=== PATIENT | female | born 2000 | race Caucasian/White ===

== ENCOUNTER 2018-08-12 13:22 | Inpatient (IN) | payer MEDICAID, OTHER ==
[2018-08-12] VITALS (39 sets, daily range): BP systolic 114–136; BP diastolic 60–88
[~2018-08-12] VITALS: Ht 154.9 cm; Wt 70.3 kg
--- NOTE | 2018-08-12 13:25 | NUR ---
LAYLA RIOS presented to unit via from ED, accompanied by family, with c/o CONTRACTIONS. LAYLA RIOS weighed, gowned, voided, and to bed. EFHM and TOCO applied, VS taken. LAYLA RIOS oriented to bed controls, call light, TV, heat, and A/C controls.
[2018-08-12 14:44] LABS: BILIRUBIN,URINE NEGATIVE (NEGATIVE); CLARITY,URINE CLEAR; COLOR,URINE YELLOW; GLUCOSE, URINE (UA) NEGATIVE (NEGATIVE); KETONES,URINE NEGATIVE (NEGATIVE); LEUKOCYTE ESTERASE ,URINE 2+ (NEGATIVE); NITRITE,URINE NEGATIVE (NEGATIVE); PH,URINE 6 (5-9); PROTEIN,URINE NEGATIVE (NEGATIVE); UROBILINOGEN,URINE NORMAL (NORMAL)
--- NOTE | 2018-08-12 14:45 | NUR ---
SVE by this RN. 3cm 60-70% scant amount of bloody show noted with exam. repositioned to semifowler.
[2018-08-12 14:55] LABS: BACTERIA,URINE NEGATIVE /HPF; SQUAMOUS EPITHELIAL CELL,UR 0-2 /HPF; WBC,URINE 0-2 /HPF
--- NOTE | 2018-08-12 15:05 | NUR ---
dr muir notified of patient c/o and SBAR report given by this RN. new orders received.
[2018-08-12] MEDS ORDERED: OXYTOCIN/NORMAL SALINE 500 ML IV SCH (15:10)
[2018-08-12] MEDS ORDERED: D5 LR IV SOLUTION 1,000 ML IV SCH (15:10)
[2018-08-12] MEDS ORDERED: MINERAL OIL CONCENTRATE 99.9% 15 ML UDC TOP PRN (15:15)
[2018-08-12] MEDS ORDERED: D5 LR IV SOLUTION 1,000 ML IV ONE (15:22)
[2018-08-12] MEDS ORDERED: OXYTOCIN/NORMAL SALINE 500 ML IV ONE (15:22)
--- OUTSIDE RECORDS SUMMARY | 2018-08-12 15:26 | XMS REPORT | Continuity of Care Document ---
Author Author Pending Sale To [facility] Address Unknown Phone Unavailable Allergies There is no data. Medications There is no data. Problems Date Dx Coded Attending Type Code Diagnosis Diagnosed By 11/26/2013 V70.3 SPORTS PHYSICAL 04/25/2016 SETH HANNON Z01.419 Encounter for gynecological examination (general) (routine) without abnormal findings 08/03/2016 ULICES JACKSON R21 Rash and other nonspecific skin eruption Procedures Code [place] [address] VISUAL ACUITY SCREEN 11/28/2013 GUCUL CULTURE GENITAL 04/25/2016 HIVAAB HIV 1 AND 2 ABS AND HIV 1 P24 AG 04/25/2016 PAPCHL CHLAMYDIA TRACHOMATIS BY AMPLIFIED PROBE 04/25/2016 PAPGC NEISSERIA GONORRHOEAE BY AMPLIFIED PROBE 04/25/2016 PAPLIQ PAP LIQUID PAP SCREENING 04/25/2016 PREGS TEST, QUAL, SERUM 04/25/2016 RPR RPR 04/25/2016 WTPREP WET MOUNT 04/25/2016 <section xmlns="urn:hl7-org:v3" xmlns:xsi="http:// www.w3.org/2001/XMLSchema-instance"> <templateId root= "2.16.840.1.613037.10.20.22.2.3" /> <templateId root= "2.16.840.1.413083.10.20.22.2.3.1" /> <code codeSystemName="LOINC" codeSystem= "2.16.840.1.623342.6.1" code="54663-8" displayName="Results" /> <title>Results< /title> <text> <table> <thead> <tr> <th>Test</th> <th>Result</th> <th>Range</th> </tr> </thead> < tbody> <tr> <th colspan="10">PAP LIQUID PAP SCREENING - 10:35</th> </tr> <tr> <td>PAP RESULT</td> <td >ASCUS </td> <td>NEGATIVE</td> </tr> <tr> <th colspan="10">CHLAMYDIA TRACHOMATIS BY AMPLIFIED PROBE - 04/25/16 10:35</th> </tr> <tr> <td>CHLAMYDIA TRACH AMPLIFIED PROBE</td> <td>POSITIVE </td> <td>NEGATIVE</td> </tr> <tr> <th colspan="10">NEISSERIA GONORRHOEAE BY AMPLIFIED PROBE - 04/25/16 10:35</ th> </tr> <tr> <td>NEISSERIA GONORRHOEAE BY AMPLIFIED PROBE</td> <td>NEGATIVE </td> <td>NEGATIVE</td> </tr> <tr> <th colspan="10">WET MOUNT - 04/25/16 11:26</th> </ tr> <tr> <td>Microbiology</td> <td> </td> <td /> </tr> <tr> <th colspan="10">HCG SERUM QUAL - 04/25/16 11:26</th> </tr> <tr> <td>PREG TEST, SERUM</td> <td>NEGATIVE </td> <td /> </tr> <tr> <th colspan ="10">HIV 1 AND 2 ABS AND HIV 1 P24 AG - 04/25/16 11:26</th> </tr> <tr> <td>HIV ANTIGEN - ANTIBODY</td> <td>NON-REACTIVE </td> <td /> </tr> <tr> <th colspan="10">RPR - 11:26</th> </tr> <tr> <td>RPR</td> <td>NON- REACTIVE </td> <td>NON-REACTIVE</td> </tr> <tr> <th colspan="10">CULTURE GENITAL - 04/25/16 11:26</th> </tr> <tr> <td>Microbiology</td> <td> </td> <td /> </tr > <tr> <th colspan="10">COMPREHENSIVE METABOLIC PANEL - 20:21</th> </tr> <tr> <td>POTASSIUM</td> <td> 3.8 mmol/L</td> <td>3.5-5.1</td> </tr> <tr> <td> CALCIUM</td> <td>7.9 mg/dL</td> <td>8.5-10.0</td> </tr > <tr> <td>GLUCOSE</td> <td>90 mg/dL</td> <td> 70-115</td> </tr> <tr> <td>BUN</td> <td>9 mg/dL< /td> <td>7-18</td> </tr> <tr> <td>CREATININE</td > <td>0.58 mg/dL</td> <td>0.55-1.30</td> </tr> < tr> <td>SODIUM</td> <td>138 mmol/L</td> <td>136-145</ td> </tr> <tr> <td>CHLORIDE</td> <td>101 mmol/L< /td> <td>98-107</td> </tr> <tr> <td>CO2</td> <td>27 mmol/L</td> <td>21-32</td> </tr> <tr> <td>GFR ESTIMATED NOT AFR/AM</td> <td>NOT CALCULATED </td> <td /> </tr> <tr> <td>GFR ESTIMATED IF AFR/AM</td> <td>NOT CALCULATED </td> <td /> </tr> <tr> <td>ALT-SGPT</td> <td>20 U/L</td> <td>13-56</td> </ tr> <tr> <td>AST-SGOT</td> <td>16 U/L</td> <td >15-37</td> </tr> <tr> <td>TOTAL PROTEIN,SERUM</td> <td>6.3 g/dL</td> <td>6.0-8.3</td> </tr> <tr> <td>ALBUMIN</td> <td>3.2 g/dL</td> <td>3.4-5.0</td> </tr> <tr> <td>ALKALINE PHOSPHATASE</td> <td>60 U/L</ td> <td>45-117</td> </tr> <tr> <td>TOTAL BILIRUBIN</td> <td>0.2 mg/dL</td> <td>0.2-1.0</td> </tr > <tr> <td>ANION GAP</td> <td>10 </td> <td>5- 15</td> </tr> <tr> <td>GLOBULIN, CALCULATED</td> <td>3.1 g/dL</td> <td /> </tr> <tr> <td>A/G RATIO</td> <td>1.0 ratio</td> <td>1-1.8</td> </tr> <tr> <th colspan="10">HCG SERUM QUAL - 08/03/16 20:21</th> < /tr> <tr> <td>PREG TEST, SERUM</td> <td>NEGATIVE </td> <td /> </tr> <tr> <th colspan="10">CBC WITH DIFF - 08/03/16 20:21</th> </tr> <tr> <td>WBC</td> <td>3.42 10*3/uL</td> <td>4.00-10.80</td> </tr> <tr> <td>RBC</td> <td>4.04 10*6/uL</td> <td>4.20-5.40</td > </tr> <tr> <td>HGB</td> <td>12.0 g/dL</td> <td>12.0-16.0</td> </tr> <tr> <td>HCT</td> <td>35.0 %</td> <td>37.0-47.0</td> </tr> <tr> <td>MCV</td> <td>87 fL</td> <td>81-99</td> </tr> <tr> <td>MCH</td> <td>30 pg</td> <td>26.0- 34.0</td> </tr> <tr> <td>MCHC</td> <td>34.3 g/dL </td> <td>31.0-37.0</td> </tr> <tr> <td> PLATELET COUNT</td> <td>238 10*3/uL</td> <td>150-400</td> </tr> <tr> <td>RDWCV</td> <td>12.0 %</td> <td>11.5-14.5</td> </tr> <tr> <td>DIFF TYPE</td> <td>MANUAL DIFFERENTIAL </td> <td /> </tr> <tr> <td>SEG NEUTROPHILS</td> <td>62 %</td> <td>36-66</ td> </tr> <tr> <td>LYMPHOCYTES</td> <td>28 % </td> <td>24-44</td> </tr> <tr> <td>EOSINOPHILS< /td> <td>4 %</td> <td>0-10</td> </tr> <tr> <td>NEUTROPHILS, ABSOLUTE</td> <td>2.12 10*3/uL</td> <td>1.55-7.13</td> </tr> <tr> <td>LYMPHOCYTES, ABSOLUTE</ td> <td>0.96 10*3/uL</td> <td>1.00-4.80</td> </tr> <tr> <td>EOSINOPHILS, ABSOLUTE</td> <td>0.14 10*3/uL</td> <td>0.00-0.65</td> </tr> <tr> <td>RBC MORPHOLOGY</td> <td>SEE NOTES </td> <td /> </tr> <tr> <td>ABSOLUTE NUCLEATED RBC</td> <td>0.00 10*3/uL</td> <td>0.00</td> </tr> <tr> <td>VARIANT LYMPHS PERCENT</td> <td>7 %</td> <td /> </tr> <tr> <td>PERCENT NUCLEATED RBC</td> <td>0.0 %</td> < td>0.0</td> </tr> <tr> <td>MONOCYTES</td> <td>6 %</td> <td>1-10</td> </tr> <tr> <td> MONOCYTES, ABSOLUTE</td> <td>0.21 10*3/uL</td> <td>0.40-1.08</ td> </tr> <tr> <td>MPV</td> <td>9.5 fL</td> <td>9.4-12.3</td> </tr> <tr> <td>RDW STANDARD DEVIATION</td> <td>38.4 fL</td> <td>36.4-46.3</td> </tr > </tbody> </table> </text> <entry> <organizer moodCode="EVN" classCode="BATTERY"> <templateId root="2.16.840.1.932573.10.20.22.4.1" /> <id nullFlavor="NA" /> <code codeSystem="local" code="PAPLIQ" displayName="PAP LIQUID PAP SCREENING" /> <statusCode code="completed" /> <component> <observation moodCode="EVN" classCode="OBS"> < templateId root="2.16.840.1.372673.10.20.22.4.2" /> <id nullFlavor="NA " /> <code codeSystem="local" code="RESULT" displayName="PAP RESULT" / > <statusCode code="completed" /> <effectiveTime value= "[id number]" /> <value unit="" xsi:type="PQ" value="ASCUS" /> <interpretationCode codeSystem="local" code="A" /> <referenceRange> <observationRange> <text>NEGATIVE</text> </ observationRange> </referenceRange> </observation> </ component> </organizer> </entry> <entry> <organizer moodCode="EVN" classCode="BATTERY"> <templateId root="216.840.1.929523.10.20.22.4.1" /> <id nullFlavor="NA" /> <code codeSystem="local" code="PAPCHL" displayName="CHLAMYDIA TRACHOMATIS BY AMPLIFIED PROBE" /> <statusCode code= "completed" /> <component> <observation moodCode="EVN" classCode= "OBS"> <templateId root="216.840.1.758672.10.20.22.4.2" /> < id nullFlavor="NA" /> <code codeSystem="local" code="PAPCHL" displayName="CHLAMYDIA TRACH AMPLIFIED PROBE" /> <statusCode code= "completed" /> <effectiveTime value="[id number]" /> <value unit="" xsi:type="PQ" value="POSITIVE" /> <interpretationCode codeSystem="local" code="A" /> <referenceRange> < observationRange> <text>NEGATIVE</text> </ observationRange> </referenceRange> </observation> </ component> </organizer> </entry> <entry> <organizer moodCode="EVN" classCode="BATTERY"> <templateId root="09.07.840.1.777642.10..22.4.1" /> <id nullFlavor="NA" /> <code codeSystem="local" code="PAPGC" displayName="NEISSERIA GONORRHOEAE BY AMPLIFIED PROBE" /> <statusCode code= "completed" /> <component> <observation moodCode="EVN" classCode= "OBS"> <templateId root="09.07.840.1.331800.05.11.22.4.2" /> < id nullFlavor="NA" /> <code codeSystem="local" code="PAPGC" displayName ="NEISSERIA GONORRHOEAE BY AMPLIFIED PROBE" /> <statusCode code= "completed" /> <effectiveTime value="018084717203" /> <value unit="" xsi:type="PQ" value="NEGATIVE" /> <referenceRange> < observationRange> <text>NEGATIVE</text> </ observationRange> </referenceRange> </observation> </ component> </organizer> </entry> <entry> <organizer moodCode="EVN" classCode="BATTERY"> <templateId root="09.07.840.1.781382.05.11.22.4.1" /> <id nullFlavor="NA" /> <code codeSystem="local" code="WTPREP" displayName="WET MOUNT" /> <statusCode code="completed" /> <component > <observation moodCode="EVN" classCode="OBS"> <templateId root= "16.840.1.262274.10...4.2" /> <id nullFlavor="NA" /> < code codeSystem="local" code="MB" displayName="Microbiology" /> < statusCode code="completed" /> <effectiveTime value="[id number]" /> <value xsi:type="ST" value="<pre><b>WET MOUNT</b> SOURCE: CERVIX REQUISITION NOTE: NONE TEST RESULT: NO TRICHOMONAS ATEST RESULT: NO YEAST REPORT STATUS: 04/25/2016 FINAL </pre>" /> <referenceRange> <observationRange> <text /> </observationRange> </referenceRange> </observation> </component> </organizer> </ entry> <entry> <organizer moodCode="EVN" classCode="BATTERY"> < templateId root="216.840.1.528302.10..22.4.1" /> <id nullFlavor="NA" /> <code codeSystem="local" code="PREGS" displayName="HCG SERUM QUAL" /> <statusCode code="completed" /> <component> <observation moodCode= "EVN" classCode="OBS"> <templateId root="2.16.840.1.873074.10...4.2 " /> <id nullFlavor="NA" /> <code codeSystem="local" code= "PREGS" displayName="PREG TEST, SERUM" /> <statusCode code="completed" /> <effectiveTime value="565611985674" /> <value unit="" xsi: type="PQ" value="NEGATIVE" /> <referenceRange> < observationRange> <text /> </observationRange> </referenceRange> </observation> </component> </organizer> </ entry> <entry> <organizer moodCode="EVN" classCode="BATTERY"> < templateId root="2.16.840.1.152663.10..22.4.1" /> <id nullFlavor="NA" /> <code codeSystem="local" code="HIVAAB" displayName="HIV 1 AND 2 ABS AND HIV 1 P24 AG" /> <statusCode code="completed" /> <component> < observation moodCode="EVN" classCode="OBS"> <templateId root= "216.840.1.835050.22.4.2" /> <id nullFlavor="NA" /> < code codeSystem="local" code="HIVAGB" displayName="HIV ANTIGEN - ANTIBODY" /> <statusCode code="completed" /> <effectiveTime value= "668378956894" /> <value unit="" xsi:type="PQ" value="NON-REACTIVE" /> <referenceRange> <observationRange> <text /> </observationRange> </referenceRange> </observation> </component> </organizer> </entry> <entry> <organizer moodCode= "EVN" classCode="BATTERY"> <templateId root="16.840.1.180579.05.11.22.4.1 " /> <id nullFlavor="NA" /> <code codeSystem="local" code="RPR" displayName="RPR" /> <statusCode code="completed" /> <component> <observation moodCode="EVN" classCode="OBS"> <templateId root= "16.840.1.813597...4.2" /> <id nullFlavor="NA" /> < code codeSystem="local" code="RPR" displayName="RPR" /> <statusCode code="completed" /> <effectiveTime value="592623993738" /> < value unit="" xsi:type="PQ" value="NON-REACTIVE" /> <referenceRange> <observationRange> <text>NON-REACTIVE</text> < /observationRange> </referenceRange> </observation> </ component> </organizer> </entry> <entry> <organizer moodCode="EVN" classCode="BATTERY"> <templateId root="16.840.1.027866.10..4.1" /> <id nullFlavor="NA" /> <code codeSystem="local" code="GUCUL" displayName="CULTURE GENITAL" /> <statusCode code="completed" /> < component> <observation moodCode="EVN" classCode="OBS"> < templateId root="09.07.840.1.153909.10.4.2" /> <id nullFlavor="NA " /> <code codeSystem="local" code="MB" displayName="Microbiology" /> <statusCode code="completed" /> <effectiveTime value= "128899848703" /> <value xsi:type="ST" value="<pre><b>CULTURE GENITAL</ b> SOURCE: CERVIX REQUISITION NOTE: NONE CULTURE RESULTS: MODERATE GARDNERELLA VAGINALIS ACULTURE RESULTS: AND NORMAL GENITAL TRACT SONNY REPORT STATUS: 2015 FINAL </pre>" /> <referenceRange> <observationRange> <text /> </observationRange> </referenceRange> </observation> </component> </organizer> </entry> <entry> < organizer moodCode="EVN" classCode="BATTERY"> <templateId root= "09.07.840.1.613799.05.11.22.4.1" /> <id nullFlavor="NA" /> <code codeSystem="local" code="CMEP" displayName="COMPREHENSIVE METABOLIC PANEL" /> <statusCode code="completed" /> <component> <observation moodCode="EVN" classCode="OBS"> <templateId root= "16.840.1.856805.10..22.4.2" /> <id nullFlavor="NA" /> < code codeSystem="local" code="K" displayName="POTASSIUM" /> < statusCode code="completed" /> <effectiveTime value="848136524792" /> <value unit="mmol/L" xsi:type="PQ" value="3.8" /> < referenceRange> <observationRange> <text>3.5-5.1</text> </observationRange> </referenceRange> </observation > </component> <component> <observation moodCode="EVN" classCode="OBS"> <templateId root="216.840.1.648454.1022.4.2" /> <id nullFlavor="NA" /> <code codeSystem="local" code="CA" displayName="CALCIUM" /> <statusCode code="completed" /> < effectiveTime value="" /> <value unit="mg/dL" xsi:type="PQ " value="7.9" /> <interpretationCode codeSystem="local" code="L" /> <referenceRange> <observationRange> <text>8.5- 10.0</text> </observationRange> </referenceRange> </ observation> </component> <component> <observation moodCode= "EVN" classCode="OBS"> <templateId root="09.07.840.1.123582.05.11.22.4.2 " /> <id nullFlavor="NA" /> <code codeSystem="local" code= "GLUC" displayName="GLUCOSE" /> <statusCode code="completed" /> <effectiveTime value="" /> <value unit="mg/dL" xsi:type= "PQ" value="90" /> <referenceRange> <observationRange> <text>70-115</text> </observationRange> </ referenceRange> </observation> </component> <component> <observation moodCode="EVN" classCode="OBS"> <templateId root= "16.840.1.551893.10.22.4.2" /> <id nullFlavor="NA" /> < code codeSystem="local" code="BUN" displayName="BUN" /> <statusCode code="completed" /> <effectiveTime value="" /> < value unit="mg/dL" xsi:type="PQ" value="9" /> <referenceRange> <observationRange> <text>7-18</text> </ observationRange> </referenceRange> </observation> </ component> <component> <observation moodCode="EVN" classCode="OBS"> <templateId root="16.840.1.864933.10..22.4.2" /> <id nullFlavor="NA" /> <code codeSystem="local" code="CREA" displayName= "CREATININE" /> <statusCode code="completed" /> < effectiveTime value="" /> <value unit="mg/dL" xsi:type="PQ " value="0.58" /> <referenceRange> <observationRange> <text>0.55-1.30</text> </observationRange> </ referenceRange> </observation> </component> <component> <observation moodCode="EVN" classCode="OBS"> <templateId root= "09.07.840.1.020348...4.2" /> <id nullFlavor="NA" /> < code codeSystem="local" code="NA" displayName="SODIUM" /> <statusCode code="completed" /> <effectiveTime value="" /> < value unit="mmol/L" xsi:type="PQ" value="138" /> <referenceRange> <observationRange> <text>136-145</text> </ observationRange> </referenceRange> </observation> </ component> <component> <observation moodCode="EVN" classCode="OBS"> <templateId root="09.07.840.1.660594.10..22.4.2" /> <id nullFlavor="NA" /> <code codeSystem="local" code="CL" displayName= "CHLORIDE" /> <statusCode code="completed" /> <effectiveTime value="" /> <value unit="mmol/L" xsi:type="PQ" value="101" /> <referenceRange> <observationRange> <text>98 -107</text> </observationRange> </referenceRange> </ observation> </component> <component> <observation moodCode= "EVN" classCode="OBS"> <templateId root="09.07.840.1.541058.10..4.2 " /> <id nullFlavor="NA" /> <code codeSystem="local" code="CO2 " displayName="CO2" /> <statusCode code="completed" /> < effectiveTime value="" /> <value unit="mmol/L" xsi:type="PQ " value="27" /> <referenceRange> <observationRange> <text>21-32</text> </observationRange> </ referenceRange> </observation> </component> <component> <observation moodCode="EVN" classCode="OBS"> <templateId root= "09.07.840.1.668168.05.11.22.4.2" /> <id nullFlavor="NA" /> < code codeSystem="local" code="GFR" displayName="GFR ESTIMATED NOT AFR/AM" /> <statusCode code="completed" /> <effectiveTime value= "" /> <value unit="" xsi:type="PQ" value="NOT CALCULATED" / > <referenceRange> <observationRange> <text /> </observationRange> </referenceRange> </observation > </component> <component> <observation moodCode="EVN" classCode="OBS"> <templateId root="09.07.840.1.299785.10...4.2" /> <id nullFlavor="NA" /> <code codeSystem="local" code="GFRAFR" displayName="GFR ESTIMATED IF AFR/AM" /> <statusCode code="completed" / > <effectiveTime value="" /> <value unit="" xsi: type="PQ" value="NOT CALCULATED" /> <referenceRange> < observationRange> <text /> </observationRange> </referenceRange> </observation> </component> <component> <observation moodCode="EVN" classCode="OBS"> <templateId root= "216.840.1.199528.10...4.2" /> <id nullFlavor="NA" /> < code codeSystem="local" code="ALT" displayName="ALT-SGPT" /> < statusCode code="completed" /> <effectiveTime value="" /> <value unit="U/L" xsi:type="PQ" value="20" /> <referenceRange > <observationRange> <text>13-56</text> </ observationRange> </referenceRange> </observation> </ component> <component> <observation moodCode="EVN" classCode="OBS"> <templateId root="16.840.1.806433.10...4.2" /> <id nullFlavor="NA" /> <code codeSystem="local" code="AST" displayName="AST -SGOT" /> <statusCode code="completed" /> <effectiveTime value ="" /> <value unit="U/L" xsi:type="PQ" value="16" /> <referenceRange> <observationRange> <text>15-37</ text> </observationRange> </referenceRange> </ observation> </component> <component> <observation moodCode= "EVN" classCode="OBS"> <templateId root="16.840.1.878826.22.4.2 " /> <id nullFlavor="NA" /> <code codeSystem="local" code="TP " displayName="TOTAL PROTEIN,SERUM" /> <statusCode code="completed" /> <effectiveTime value="430893756082" /> <value unit="g/dL" xsi :type="PQ" value="6.3" /> <referenceRange> <observationRange > <text>6.0-8.3</text> </observationRange> </ referenceRange> </observation> </component> <component> <observation moodCode="EVN" classCode="OBS"> <templateId root= "16.840.1.769200.05.11.22.4.2" /> <id nullFlavor="NA" /> < code codeSystem="local" code="ALB" displayName="ALBUMIN" /> < statusCode code="completed" /> <effectiveTime value="288076552498" /> <value unit="g/dL" xsi:type="PQ" value="3.2" /> < interpretationCode codeSystem="local" code="L" /> <referenceRange> <observationRange> <text>3.4-5.0</text> </ observationRange> </referenceRange> </observation> </ component> <component> <observation moodCode="EVN" classCode="OBS"> <templateId root="09.07.840.1.390570.22.4.2" /> <id nullFlavor="NA" /> <code codeSystem="local" code="ALK" displayName= "ALKALINE PHOSPHATASE" /> <statusCode code="completed" /> < effectiveTime value="083149206561" /> <value unit="U/L" xsi:type="PQ" value="60" /> <referenceRange> <observationRange> <text>45-117</text> </observationRange> </referenceRange > </observation> </component> <component> <observation moodCode="EVN" classCode="OBS"> <templateId root= "216.840.1.147657.1022.4.2" /> <id nullFlavor="NA" /> < code codeSystem="local" code="TBIL" displayName="TOTAL BILIRUBIN" /> < statusCode code="completed" /> <effectiveTime value="" /> <value unit="mg/dL" xsi:type="PQ" value="0.2" /> < referenceRange> <observationRange> <text>0.2-1.0</text> </observationRange> </referenceRange> </observation > </component> <component> <observation moodCode="EVN" classCode="OBS"> <templateId root="09.07.840.1.210755.22.4.2" /> <id nullFlavor="NA" /> <code codeSystem="local" code="BAL" displayName="ANION GAP" /> <statusCode code="completed" /> < effectiveTime value="" /> <value unit="" xsi:type="PQ" value="10" /> <referenceRange> <observationRange> <text>5-15</text> </observationRange> </referenceRange> </observation> </component> <component> <observation moodCode="EVN" classCode="OBS"> <templateId root= "16.840.1.968863.1022.4.2" /> <id nullFlavor="NA" /> < code codeSystem="local" code="GLOBC" displayName="GLOBULIN, CALCULATED" /> <statusCode code="completed" /> <effectiveTime value=" " /> <value unit="g/dL" xsi:type="PQ" value="3.1" /> < referenceRange> <observationRange> <text /> < /observationRange> </referenceRange> </observation> </ component> <component> <observation moodCode="EVN" classCode="OBS"> <templateId root="16.840.1.513473.10.20.22.4.2" /> <id nullFlavor="NA" /> <code codeSystem="local" code="AGRATIO" displayName= "A/G RATIO" /> <statusCode code="completed" /> <effectiveTime value="413157928451" /> <value unit="ratio" xsi:type="PQ" value="1.0" / > <referenceRange> <observationRange> <text>1- 1.8</text> </observationRange> </referenceRange> </ observation> </component> </organizer> </entry> <entry> <organizer moodCode="EVN" classCode="BATTERY"> <templateId root= "16.840.1.884502.10..22.4.1" /> <id nullFlavor="NA" /> <code codeSystem="local" code="PREGS" displayName="HCG SERUM QUAL" /> < statusCode code="completed" /> <component> <observation moodCode= "EVN" classCode="OBS"> <templateId root="16.840.1.450657.10.20.22.4.2 " /> <id nullFlavor="NA" /> <code codeSystem="local" code= "PREGS" displayName="PREG TEST, SERUM" /> <statusCode code="completed" /> <effectiveTime value="338387451178" /> <value unit="" xsi: type="PQ" value="NEGATIVE" /> <referenceRange> < observationRange> <text /> </observationRange> </referenceRange> </observation> </component> </organizer> </ entry> <entry> <organizer moodCode="EVN" classCode="BATTERY"> < templateId root="16.840.1.404998.05.11.22.4.1" /> <id nullFlavor="NA" /> <code codeSystem="local" code="CBC" displayName="CBC WITH DIFF" /> < statusCode code="completed" /> <component> <observation moodCode= "EVN" classCode="OBS"> <templateId root="[id number] " /> <id nullFlavor="NA" /> <code codeSystem="local" code="WBC " displayName="WBC" /> <statusCode code="completed" /> < effectiveTime value="" /> <value unit="10*3/uL" xsi:type= "PQ" value="3.42" /> <interpretationCode codeSystem="local" code="L" / > <referenceRange> <observationRange> <text> 4.00-10.80</text> </observationRange> </referenceRange> </observation> </component> <component> <observation moodCode="EVN" classCode="OBS"> <templateId root= "[id number]" /> <id nullFlavor="NA" /> < code codeSystem="local" code="RBC" displayName="RBC" /> <statusCode code="completed" /> <effectiveTime value="" /> < value unit="10*6/uL" xsi:type="PQ" value="4.04" /> <interpretationCode codeSystem="local" code="L" /> <referenceRange> < observationRange> <text>4.20-5.40</text> </ observationRange> </referenceRange> </observation> </ component> <component> <observation moodCode="EVN" classCode="OBS"> <templateId root="[id number]" /> <id nullFlavor="NA" /> <code codeSystem="local" code="HGB" displayName="HGB " /> <statusCode code="completed" /> <effectiveTime value= "" /> <value unit="g/dL" xsi:type="PQ" value="12.0" /> <referenceRange> <observationRange> <text>12.0- 16.0</text> </observationRange> </referenceRange> </ observation> </component> <component> <observation moodCode= "EVN" classCode="OBS"> <templateId root="[id number] " /> <id nullFlavor="NA" /> <code codeSystem="local" code="HCT " displayName="HCT" /> <statusCode code="completed" /> < effectiveTime value="" /> <value unit="%" xsi:type="PQ " value="35.0" /> <interpretationCode codeSystem="local" code="L" /> <referenceRange> <observationRange> <text>37.0- 47.0</text> </observationRange> </referenceRange> </ observation> </component> <component> <observation moodCode= "EVN" classCode="OBS"> <templateId root="[id number] " /> <id nullFlavor="NA" /> <code codeSystem="local" code="MCV " displayName="MCV" /> <statusCode code="completed" /> < effectiveTime value="" /> <value unit="fL" xsi:type="PQ" value="87" /> <referenceRange> <observationRange> <text>81-99</text> </observationRange> </referenceRange > </observation> </component> <component> <observation moodCode="EVN" classCode="OBS"> <templateId root= "[id number]" /> <id nullFlavor="NA" /> < code codeSystem="local" code="MCH" displayName="MCH" /> <statusCode code="completed" /> <effectiveTime value="[id number]" /> < value unit="pg" xsi:type="PQ" value="30" /> <referenceRange> <observationRange> <text>26.0-34.0</text> </ observationRange> </referenceRange> </observation> </ component> <component> <observation moodCode="EVN" classCode="OBS"> <templateId root="[id number]" /> <id nullFlavor="NA" /> <code codeSystem="local" code="MCHC" displayName= "MCHC" /> <statusCode code="completed" /> <effectiveTime value ="[id number]" /> <value unit="g/dL" xsi:type="PQ" value="34.3" /> <referenceRange> <observationRange> <text>31.0- 37.0</text> </observationRange> </referenceRange> </ observation> </component> <component> <observation moodCode= "EVN" classCode="OBS"> <templateId root="[id number] " /> <id nullFlavor="NA" /> <code codeSystem="local" code="PLT " displayName="PLATELET COUNT" /> <statusCode code="completed" /> <effectiveTime value="" /> <value unit="10*3/uL" xsi: type="PQ" value="238" /> <referenceRange> <observationRange > <text>150-400</text> </observationRange> </ referenceRange> </observation> </component> <component> <observation moodCode="EVN" classCode="OBS"> <templateId root= "[id number]" /> <id nullFlavor="NA" /> < code codeSystem="local" code="RDWCV" displayName="RDWCV" /> < statusCode code="completed" /> <effectiveTime value="" /> <value unit="%" xsi:type="PQ" value="12.0" /> < referenceRange> <observationRange> <text>11.5-14.5</text > </observationRange> </referenceRange> </observation > </component> <component> <observation moodCode="EVN" classCode="OBS"> <templateId root="[id number]" /> <id nullFlavor="NA" /> <code codeSystem="local" code="DTYP" displayName="DIFF TYPE" /> <statusCode code="completed" /> < effectiveTime value="" /> <value unit="" xsi:type="PQ" value="MANUAL DIFFERENTIAL" /> <referenceRange> < observationRange> <text /> </observationRange> </referenceRange> </observation> </component> <component> <observation moodCode="EVN" classCode="OBS"> <templateId root= "[id number]" /> <id nullFlavor="NA" /> < code codeSystem="local" code="SEG" displayName="SEG NEUTROPHILS" /> < statusCode code="completed" /> <effectiveTime value="" /> <value unit="%" xsi:type="PQ" value="62" /> < referenceRange> <observationRange> <text>36-66</text> </observationRange> </referenceRange> </observation> </component> <component> <observation moodCode="EVN" classCode= "OBS"> <templateId root="[id number]..22.4.2" /> < id nullFlavor="NA" /> <code codeSystem="local" code="LYMP" displayName= "LYMPHOCYTES" /> <statusCode code="completed" /> < effectiveTime value="" /> <value unit="%" xsi:type="PQ " value="28" /> <referenceRange> <observationRange> <text>24-44</text> </observationRange> </ referenceRange> </observation> </component> <component> <observation moodCode="EVN" classCode="OBS"> <templateId root= "[id number]..22.4.2" /> <id nullFlavor="NA" /> < code codeSystem="local" code="EOS" displayName="EOSINOPHILS" /> < statusCode code="completed" /> <effectiveTime value="" /> <value unit="%" xsi:type="PQ" value="4" /> <referenceRange > <observationRange> <text>0-10</text> </ observationRange> </referenceRange> </observation> </ component> <component> <observation moodCode="EVN" classCode="OBS"> <templateId root="[id number].2" /> <id nullFlavor="NA" /> <code codeSystem="local" code="ABNEUT" displayName= "NEUTROPHILS, ABSOLUTE" /> <statusCode code="completed" /> < effectiveTime value="" /> <value unit="10*3/uL" xsi:type= "PQ" value="2.12" /> <referenceRange> <observationRange> <text>1.55-7.13</text> </observationRange> </ referenceRange> </observation> </component> <component> <observation moodCode="EVN" classCode="OBS"> <templateId root= "[id number]" /> <id nullFlavor="NA" /> < code codeSystem="local" code="ABLYMP" displayName="LYMPHOCYTES, ABSOLUTE" /> <statusCode code="completed" /> <effectiveTime value= "" /> <value unit="10*3/uL" xsi:type="PQ" value="0.96" /> <interpretationCode codeSystem="local" code="L" /> < referenceRange> <observationRange> <text>1.00-4.80</text > </observationRange> </referenceRange> </observation > </component> <component> <observation moodCode="EVN" classCode="OBS"> <templateId root="[id number].2" /> <id nullFlavor="NA" /> <code codeSystem="local" code="ABEOS" displayName="EOSINOPHILS, ABSOLUTE" /> <statusCode code="completed" /> <effectiveTime value="" /> <value unit="10*3/uL" xsi:type="PQ" value="0.14" /> <referenceRange> < observationRange> <text>0.00-0.65</text> </ observationRange> </referenceRange> </observation> </ component> <component> <observation moodCode="EVN" classCode="OBS"> <templateId root="[id number]" /> <id nullFlavor="NA" /> <code codeSystem="local" code="RMOR" displayName= "RBC MORPHOLOGY" /> <statusCode code="completed" /> < effectiveTime value="" /> <value unit="" xsi:type="PQ" value="SEE NOTES" /> <referenceRange> <observationRange> <text /> </observationRange> </referenceRange> </observation> </component> <component> <observation moodCode="EVN" classCode="OBS"> <templateId root= "[id number]2.4.2" /> <id nullFlavor="NA" /> < code codeSystem="local" code="ANRBC" displayName="ABSOLUTE NUCLEATED RBC" /> <statusCode code="completed" /> <effectiveTime value= "" /> <value unit="10*3/uL" xsi:type="PQ" value="0.00" /> <referenceRange> <observationRange> <text>0.00< /text> </observationRange> </referenceRange> </ observation> </component> <component> <observation moodCode= "EVN" classCode="OBS"> <templateId root="[id number] " /> <id nullFlavor="NA" /> <code codeSystem="local" code= "VLYMP" displayName="VARIANT LYMPHS PERCENT" /> <statusCode code= "completed" /> <effectiveTime value="" /> <value unit="%" xsi:type="PQ" value="7" /> <interpretationCode codeSystem= "local" code="H" /> <referenceRange> <observationRange> <text /> </observationRange> </referenceRange> </observation> </component> <component> <observation moodCode="EVN" classCode="OBS"> <templateId root= "09.07.840.1.482345.1022.4.2" /> <id nullFlavor="NA" /> < code codeSystem="local" code="PNRBC" displayName="PERCENT NUCLEATED RBC" /> <statusCode code="completed" /> <effectiveTime value= "" /> <value unit="%" xsi:type="PQ" value="0.0" /> <referenceRange> <observationRange> <text>0.0</ text> </observationRange> </referenceRange> </ observation> </component> <component> <observation moodCode= "EVN" classCode="OBS"> <templateId root="840.1.130876.10.4.2 " /> <id nullFlavor="NA" /> <code codeSystem="local" code="MON " displayName="MONOCYTES" /> <statusCode code="completed" /> < effectiveTime value="[id number]" /> <value unit="%" xsi:type="PQ " value="6" /> <referenceRange> <observationRange> <text>1-10</text> </observationRange> </referenceRange > </observation> </component> <component> <observation moodCode="EVN" classCode="OBS"> <templateId root= "09.07.840.1.677897.10.2022.4.2" /> <id nullFlavor="NA" /> < code codeSystem="local" code="ABMON" displayName="MONOCYTES, ABSOLUTE" /> <statusCode code="completed" /> <effectiveTime value=" " /> <value unit="10*3/uL" xsi:type="PQ" value="0.21" /> < interpretationCode codeSystem="local" code="L" /> <referenceRange> <observationRange> <text>0.40-1.08</text> </ observationRange> </referenceRange> </observation> </ component> <component> <observation moodCode="EVN" classCode="OBS"> <templateId root="[id number]..22.4.2" /> <id nullFlavor="NA" /> <code codeSystem="local" code="MPV" displayName="MPV " /> <statusCode code="completed" /> <effectiveTime value= "" /> <value unit="fL" xsi:type="PQ" value="9.5" /> <referenceRange> <observationRange> <text>9.4-12.3</ text> </observationRange> </referenceRange> </ observation> </component> <component> <observation moodCode= "EVN" classCode="OBS"> <templateId root="216.840.1.342230.10.20.22.4.2 " /> <id nullFlavor="NA" /> <code codeSystem="local" code= "RDWSD" displayName="RDW STANDARD DEVIATION" /> <statusCode code= "completed" /> <effectiveTime value="" /> <value unit="fL" xsi:type="PQ" value="38.4" /> <referenceRange> < observationRange> <text>36.4-46.3</text> </ observationRange> </referenceRange> </observation> </ component> </organizer> </entry></section> Encounters ACCT No. Visit Date/Time Discharge Status Pt. Type Provider Facility Loc./Unit Complaint [id number] 11/26/2013 11:07:00 11/26/2013 23:59:59 CLS Outpatient [id number] 09/29/2012 16:10:48 RECURRING [id number] 08/03/2016 19:06:00 08/03/2016 22:52:00 DIS Emergency ULICES JACKSON [facility] MAYA [id number] 04/25/2016 11:06:59 04/25/2016 23:59:00 DIS Outpatient SETH HANNON [id number] 08/03/2016 19:06:37 ACT Document Registration
[2018-08-12] MEDS ORDERED: FLU QUADRIvalent (5+ YOA) 2018-2019 (AFLURIA) 0.5 ML IM ONE (15:45)
[2018-08-12 15:49] LABS: BASOPHILS % (AUTO) 0 % (0-10); EOSINOPHILS # (AUTO) 0.1 10^3/uL (0.0-0.3); EOSINOPHILS % (AUTO) 1 % (0-10); HEMATOCRIT 34 % (35-52); HEMOGLOBIN 11.4 G/DL (11.5-16.0); LYMPHOCYTES # (AUTO) 2.3 X 10^3 (1.0-4.0); LYMPHOCYTES % (AUTO) 20 % (12-44); MEAN CORPUSCULAR HEMOGLOBIN 29 PG (25-34); MEAN CORPUSCULAR HGB CONC 34 G/DL (32-36); MEAN CORPUSCULAR VOLUME 85 FL (80-99); MEAN PLATELET VOLUME 10.7 FL (7.4-10.4); MONOCYTES # (AUTO) 0.8 X 10^3 (0.0-1.0); MONOCYTES % (AUTO) 7 % (0-12); NEUTROPHILS # (AUTO) 8.5 X 10^3 (1.8-7.8); NEUTROPHILS % (AUTO) 72 % (42-75); PLATELET COUNT 322 10^3/uL (130-400); RED BLOOD COUNT 3.99 10^6/uL (4.35-5.85); RED CELL DISTRIBUTION WIDTH 12.7 % (10.0-14.5); WHITE BLOOD COUNT 11.7 10^3/uL (4.3-11.0)
[2018-08-12] MEDS ORDERED: SUFENTA 0.6MCG/ML BUPIVA 0.125 100 ML ONE (16:31)
--- NOTE | 2018-08-12 16:39 | History & Physical-OB/GYN ---
History of Present Illness History of Present Illness Reason for visit/HPI Onset of labor Date of Admission Aug 12, 2018 at 15:00 Date Seen by a Provider: Aug 12, 2018 Time Seen by a Provider: 16:30 I consulted on this patient on 08/12/18 16:33 Attending Physician Gabe Deleon DO Admitting Physician No,Local Physician Consult Gabe Deleon DO Allergies and Home Medications Allergies Coded Allergies: No Known Drug Allergies (Unverified , 08/12/18) Home Medications No Active Prescriptions or Reported Meds Patient Home Medication List Home Medication List Reviewed: Yes Past Snqycge-Zvocsz-Vnyefr Hx Patient Social History Alcohol Use: Denies Use Recent Foreign Travel: No Contact w/other who traveled: No Recent Infectious Disease Expo: No Seasonal Allergies Seasonal Allergies: No Surgeries No Reproductive System Expected Date of Delivery: Aug 29, 2018 Genitourinary No Review of Systems Constitutional: no symptoms reported Respiratory: no symptoms reported Cardiovascular: no symptoms reported : Yes Expected Date of Delivery: Aug 29, 2018 LMP: Aug 12, 2018 Control/STD Prophylaxis: None Skin: no symptoms reported Physical Exam Physical Exam Vital Signs Capillary Refill : Labs General Appearance: No Apparent Distress, WD/WN Respiratory: Chest Non Tender, Lungs Clear, Normal Breath Sounds Cardiovascular: Regular Rate, Rhythm, No Murmur Abdominal: normal bowel sounds, non tender, distended () Gynecology/General: No urethral discharge, No lesions Labia: WNL Vagina: WNL Cervix: WNL, Other (Cervix 4 cm/70%/-3 Vertex/Intact) Cervix OS: open (Cervix 4 cm/70%/-3 Vertex/Intact) Uterus: Enlarged (35 cm) Assessment/Plan Assessment and Plan Assessment: IUP at 37 4/7 weeks, early labor Admission Diagnosis IUP at 37 4/7 weeks, early labor. Care in [place], [place] Admission Status: Inpatient Order (span 2 midnights) Reason for Inpatient Admission: Onset of labor Diagnosis/Problems Diagnosis/Problems (1) Uterine contractions (2) Active labor Clinical Quality Measures DVT/VTE Risk/Contraindication: Risk Factor Score Per Nursin RFS Level Per Nursing on Admit: 2=Moderate GABE DELEON DO Aug 12, 2018 16:39
[2018-08-12] MEDS ORDERED: LIDOCAINE PF 2% 5 ML (XYLOCAINE) VIAL ONE (17:00)
[2018-08-12] MEDS ORDERED: BUPIVACAINE 0.25% 30 ML (SENSORCAINE) VIAL ONE (17:00)
[2018-08-12] MEDS ORDERED: fentaNYL INJECTION 100 MCG/2 ML AMP ONE (17:01)
[2018-08-12] MEDS ORDERED: LACTATED RINGERS 1,000 ML IV ONE ×2 (17:36)
[2018-08-12] MEDS ORDERED: EPIDURAL (SUFENTA 0.6MCG/ML BUPIVA 0.125%) 100 ML BAG EPI PRN (17:45)
[2018-08-12] MEDS ORDERED: NALOXONE 0.4 MG/ML 1 ML (NARCAN) VIAL IV PRN (17:45)
[2018-08-12] MEDS ORDERED: ONDANSETRON 4 MG/2 ML (SDV) Z0FRAN IV PRN (17:45)
--- NOTE | 2018-08-12 20:55 | NUR ---
Pt. complaining of contractions, but no pressure at this time. Pt is laying calmly in bed. Epidural bolus given at this time.
[2018-08-12] MEDS ORDERED: LIDOCAINE 1% INJ 20 ML 20 ML VIAL ONE (21:52)
[2018-08-12] MEDS ORDERED: CATHETER FLUSH 10 ML SYR IV SCH (22:00)
--- NOTE | 2018-08-12 22:05 | NUR ---
Dr. Deleon called with report that pt is 9cm with a small rim. Pitocin is at 18 and pt is feeling very pushy. states that he will be up shortly.
--- NOTE | 2018-08-12 23:05 | NUR ---
2305: Dr. Deleon in room for delivery. Pt up in stirrups for pushing. Cath removed. 2334: Delivery of viable female infant in labor and delivery room. Infant placed on mom's chest. Dried, warmed, and stimulated. Pitocin turned off at this time. 2336: Cord cut by dad. 2339: Placenta delivered. Pitocin wide open. 2345: Pt. cleaned up and out of stirrups. Bleeding is minimal. Fundus massaged. One under umbilicus and firm.
--- NOTE | 2018-08-12 23:51 | OB Labor & Delivery Record ---
Vag Delivery Note Vag Delivery Note Date of Delivery: 08/12/18 Preoperative Diagnosis: Taty Warren is a (17 /Para / ,Gestational Age (wks)37with [] Postoperative Diagnosis: Same Surgeon: VALERIA SARKAR Pickling Operator: [] Anesthesia: [Local] Delivery Type: [Normal Spontaneous Vaginal Delivery] Findings: [] Viable [Female] infant, apgars [9, 9], weight [6 lb, 9 oz] Lacerations: Intact placenta with 3 vessel cord. No nuchal cord, body cord or shoulder dystocia Cytotec 800 mcg placed for hemorrhage prophylaxis Estimated Blood Loss: [200] ml Complications: None Condition: Stable Description of Procedure: The patient is a []who presented [in active labor]. She was admitted and informed consent was obtained. Her labor course was remarkable for [primigravida , augmented with Pitociin] She progressed to complete dilatation and began to push. She was then set up for delivery. The 's head was delivered atraumatically in the [ELIZABETH] position. The shoulders and remainder of the infant' s body were then delivered without difficulty. Upon delivery, the head was held below the level of the perineum and the mouth and nares were bulb suctioned. The cord was doubly clamped and cut and the was handed off to the pediatric staff. An intact placenta with 3-vessel cord delivered via [place] and there was found to be minimal bleeding.~ Vigorous fundal massage was performed and the fundus was found to be firm. IV oxytocin was given. Examination of the vagina and perineum revealed no perineal lacerations or episiotomy Following the repair, sponge, instrument and needle counts were correct. Mom and baby were both in stable condition in the labor suite. Vitals - Labs Vital Signs - I&O Vital Signs Date Time Temp Pulse Resp B/P (MAP) Pulse Ox O2 Delivery O2 Flow Rate FiO2 08/12/18 18:53 75 18 125/68 (87) 98 Room Air 08/12/18 18:50 72 18 124/60 (81) 98 Room Air 08/12/18 18:30 85 18 125/73 (90) 98 Room Air 08/12/18 18:30 80 18 122/67 (85) 98 Room Air 08/12/18 18:23 83 18 121/66 (84) 98 Room Air 08/12/18 18:18 77 18 125/71 (89) 98 Room Air 08/12/18 18:12 81 18 122/68 (86) 98 Room Air 08/12/18 18:07 80 18 121/69 (86) 98 Room Air 08/12/18 18:03 73 18 117/67 (84) 98 Room Air 08/12/18 17:57 83 18 125/72 (89) 98 Room Air 08/12/18 17:52 77 18 119/70 (86) 98 Room Air 08/12/18 17:47 68 18 118/68 (85) 97 Room Air 08/12/18 17:43 81 18 118/67 (84) 97 Room Air 08/12/18 17:37 80 18 120/71 (87) 98 Room Air 08/12/18 17:32 77 18 116/65 (82) 98 Room Air 08/12/18 17:24 96 18 123/88 (100) 98 Room Air 08/12/18 17:18 90 18 121/77 (92) 99 Room Air 08/12/18 17:05 76 18 127/82 (97) Room Air 08/12/18 17:05 88 18 130/80 (97) Room Air 08/12/18 16:50 76 18 127/82 (97) Room Air 08/12/18 16:35 85 18 122/77 (92) Room Air 08/12/18 16:05 76 18 115/70 (85) Room Air 08/12/18 15:50 97.9 63 18 118/69 (85) Room Air 08/12/18 15:35 97.9 77 18 119/69 (86) Room Air 08/12/18 13:40 97.9 97 18 133/88 (103) Room Air Labs Laboratory Tests 08/12/18 13:50: Urine Color YELLOW, Urine Clarity CLEAR, Urine pH 6, Urine Specific [place] 1.020, Urine Protein NEGATIVE, Urine Glucose (UA) NEGATIVE, Urine Ketones NEGATIVE, Urine Nitrite NEGATIVE, Urine Bilirubin NEGATIVE, Urine Urobilinogen NORMAL, Urine Leukocyte Esterase 2+H, Urine RBC (Auto) NEGATIVE, Urine RBC NONE , Urine WBC 0-2, Urine Squamous Epithelial Cells 0-2, Urine Crystals NONE, Urine Bacteria NEGATIVE, Urine Casts NONE, Urine Mucus NEGATIVE, Urine Culture Indicated NO 08/12/18 15:29: White Blood Count 11.7H, Red Blood Count 3.99L, Hemoglobin 11.4L, Hematocrit 34L , Mean Corpuscular Volume 85, Mean Corpuscular Hemoglobin 29, Mean Corpuscular Hemoglobin Concent 34, Red Cell Distribution Width 12.7, Platelet Count 322, Mean Platelet Volume 10.7H, Neutrophils (%) (Auto) 72, Lymphocytes (%) (Auto) 20 , Monocytes (%) (Auto) 7, Eosinophils (%) (Auto) 1, Basophils (%) (Auto) 0, Neutrophils # (Auto) 8.5H, Lymphocytes # (Auto) 2.3, Monocytes # (Auto) 0.8, Eosinophils # (Auto) 0.1, Basophils # (Auto) 0.0 VALEIRA SARKAR DO Aug 12, 2018 23:51
[2018-08-13] VITALS (12 sets, daily range): BP systolic 91–123; BP diastolic 50–78
--- NOTE | 2018-08-13 | NUR ---
0000: Fundus massaged. 1 under umbilicus and firm. Minimal bleeding noted. 0015: Fundus massaged. 1 under umbilicus and firm. Minimal bleeding noted. 0030: Fundus Massaged. 2 under umbilicus and firm. Minimal bleeding noted. 0045: Fundus massaged. 1 under umbilicus and firm. Minimal bleeding noted. 0115: Fundus massaged. 1 under umbilicus and firm. Minimal bleeding noted.
[2018-08-13] MEDS ORDERED: IBUPROFEN 800 MG (MOTRIN) TAB PO ONE (01:26)
[2018-08-13] MEDS ORDERED: OXYTOCIN/NORMAL SALINE 500 ML IV SCH (02:11)
[2018-08-13] MEDS ORDERED: BENZOCAINE/MENTHOL (DERMOPLAST) 56 ML CAN TP PRN (02:15)
[2018-08-13] MEDS ORDERED: oxyCODONE/APAP 5/325MG (PERCOCET 5) TABLET PO PRN (02:15)
[2018-08-13] MEDS ORDERED: TETANUS,DIPTH,PERTUSS P/F (BOOSTRIX) 0.5 ML VIAL IM ONE (02:15)
[2018-08-13] MEDS ORDERED: MEASLES,MUMPS,RUBELLA 1 EA INJ SQ ONE (02:15)
[2018-08-13] MEDS ORDERED: WITCH HAZEL(TUCKS) 40 EA JAR TOP PRN (02:15)
[2018-08-13] MEDS ORDERED: CATHETER FLUSH 10 ML SYR IV SCH (06:00)
--- NOTE | 2018-08-13 06:12 | Progress Note-Standard ---
Standard Progress Note Progress Notes/Assess & Plan Date Seen by a Provider: Aug 13, 2018 Time Seen by a Provider: 06:10 Progress/Assessment & Plan Subjective: Ms. Warren is PPD#1 from a normal spontaneous vaginal delivery. She admits to her bottom being a little sore. States that the bleeding has slowed considerably. No other concerns today. Objective: Vitals Signs are stable Heart: RRR without murmur Lungs: Clear to auscultation bilaterally, normal breath sounds Abdomen: Normal bowel sounds, fundus at umbilicus, slightly tender Extremities: +1 Pitting edema of lower extremities, normal patellar reflexes Assessment: PPD#1 Normal Spontaneous Vaginal Delivery Plan: Comfort care and pain management with expectant discharge tomorrow. Final Diagnosis IUP at 37 4/7 weeks Onset of Labor Normal Spontaneous Vaginal Delivery Diagnosis/Problems Diagnosis/Problems (1) Uterine contractions (2) Active labor VALERIA SARKAR DO Aug 13, 2018 06:12
--- NOTE | 2018-08-13 09:47 | Anesthesia-General Post-Op ---
General Patient Condition Mental Status/LOC: Same as Preop Cardiovascular: Satisfactory Nausea/Vomiting: Absent Respiratory: Satisfactory Pain: Controlled Complications: Absent Post Op Complications Complications None Follow Up Care/Instructions Patient Instructions None needed. Anesthesia/Patient Condition Patient Condition Patient is doing well, no complaints, stable vital signs, no apparent adverse anesthesia problems. No complications reported per nursing. PATITO QUEZADA CRNA Aug 13, 2018 09:46
--- NOTE | 2018-08-13 09:49 | Anesthesia-Regional Post-Op ---
Regional Patient Condition Mental Status: Alert, Oriented x3 Circulation: Same as Pre-Op Headache: Absent Sensation: Full Recovery Motor Block: Absent Post Op Complications Complications None Follow Up Care/Instructions Patient Instructions None needed. Anesthesia/Patient Condition Patient is doing well, no complaints, stable vital signs, no apparent adverse anesthesia problems. No complications reported per nursing. PATITO QUEZADA CRNA Aug 13, 2018 09:49
--- NOTE | 2018-08-13 09:53 | NUR ---
CM/SS responded to consult. Spoke to RNing and to the patient and her s/o. Patient reports that they have all necessary things for baby. She has not participated in any community support programs, discussed some and she would be interested in Healthy Families. Referral to [employer]. Did a DCF intake, due to the history of substance use, questionable care and parents being young, needing support. DCF Intake # [id number].
[2018-08-13] MEDS: IBUPROFEN 800 MG (MOTRIN) TAB PO SCH ×3 (10:06→23:01)
--- NOTE | 2018-08-13 20:15 | NUR ---
Beside assessment completed, see interventions for detailed assessment. VSS. No questions or concerns voiced at this time. Will continue to montior. Call light within reach.
[2018-08-14 02:51] VITALS: BP 107/59
[2018-08-14 04:12] VITALS: BP 87/54
[2018-08-14 04:20] LABS: BASOPHILS % (AUTO) 0 % (0-10); EOSINOPHILS # (AUTO) 0.2 10^3/uL (0.0-0.3); EOSINOPHILS % (AUTO) 2 % (0-10); HEMATOCRIT 29 % (35-52); HEMOGLOBIN 9.5 G/DL (11.5-16.0); LYMPHOCYTES # (AUTO) 2.6 X 10^3 (1.0-4.0); LYMPHOCYTES % (AUTO) 22 % (12-44); MEAN CORPUSCULAR HEMOGLOBIN 29 PG (25-34); MEAN CORPUSCULAR HGB CONC 33 G/DL (32-36); MEAN CORPUSCULAR VOLUME 87 FL (80-99); MEAN PLATELET VOLUME 10.4 FL (7.4-10.4); MONOCYTES # (AUTO) 0.8 X 10^3 (0.0-1.0); MONOCYTES % (AUTO) 7 % (0-12); NEUTROPHILS # (AUTO) 8.4 X 10^3 (1.8-7.8); NEUTROPHILS % (AUTO) 70 % (42-75); PLATELET COUNT 233 10^3/uL (130-400); RED BLOOD COUNT 3.33 10^6/uL (4.35-5.85); RED CELL DISTRIBUTION WIDTH 12.5 % (10.0-14.5); WHITE BLOOD COUNT 12.1 10^3/uL (4.3-11.0)
--- NOTE | 2018-08-14 06:00 | NUR ---
Dr. Deleon here to discuss POC with pt.
--- NOTE | 2018-08-14 06:05 | Discharge Inst-Women's Service ---
Discharge Inst-Women's Serv Depart Medication/Instructions New, Converted or Re-Newed RX: RX on Chart Instructions Pelvic rest for 6 weeks No heavy lifting, less than 20 lbs No strenuous activities Tub Soaks Return to office in 6 weeks Call with problems or questions Final Diagnosis IUP at 37 4/7 weeks Onset of Labor Normal Spontaneous Vaginal Delivery Activity Activity: Activity as Tolerated Driving Instructions: You May Drive Nothing Inside Vagina: No Douching, No [place], No Tampons Diet Discharge Diet: No Restrictions Symptoms to Report to : Bleeding Excessive, Pain Increased, Vaginal Bleeding Increase, Vaginal Discharge Foul For Any Problems or Questions: Contact Your Physician Skin/Wound Care Bathing Instructions: Tub VALERIA SARKAR DO Aug 14, 2018 06:05
[2018-08-14] MEDS: IBUPROFEN 800 MG (MOTRIN) TAB PO SCH (08:10)
[2018-08-14 08:40] VITALS: BP 113/75
== END 2018-08-14 12:05 | disposition home or self-care (01) | DRG 807 ==
LOC: WSo 13:22 → LDRP 13:33 → WSo 15:00 → LDRP 15:00
PROVIDERS: ADMIT Obstetrics & Gynecology; ATTEND Obstetrics & Gynecology
PROC: 10E0XZZ Delivery of Products of Conception, External Approach (ICD-10-PCS; principal; 2018-08-12)
DX: O80 Encounter for full-term uncomplicated delivery (principal); Z3A.37 37 weeks gestation of pregnancy; Z37.0 Single live birth
CPT/HCPCS: 36415; 81000; 85025; 86850; 86900; 86901; 99212

== ENCOUNTER 2018-08-16 11:37 | Emergency (ER) | payer MEDICAID, OTHER | END 2018-08-16 12:35 | disposition left against medical advice (07) | LOC: ER 11:37 ==

== ENCOUNTER 2022-04-25 09:40 | Emergency (ER) | payer MEDICAID ==
[~2022-04-25] VITALS: Ht 157.5 cm; Wt 53.8 kg
--- NOTE | 2022-04-25 09:48 | ED GU-Female ---
General Chief Complaint: OB < 20 WEEKS Stated Complaint: VAGINAL BLEEDING & CRAMPS DURING PREG History of Present Illness Date Seen by Provider: Apr 25, 2022 Time Seen by Provider: 09:48 Initial Comments 21 yr F , [id number], who is 10 weeks and 2 days, with ultrasound date of SARAH as 11/16/2022, is here with complaints of lower pelvic cramping which has been going on since yesterday. Patient also had one episode of spotting after intercourse 2 days ago. No subsequent bleeding. Patient states that she only drinks 1 glass of water per day for the past couple of weeks. Denies dysuria, fever, hematuria, falls, injury, dizziness, chest pain, nausea and vomiting. Allergies and Home Medications Allergies Coded Allergies: No Known Drug Allergies (Unverified , 08/12/18) Patient Home Medication List Home Medication List Reviewed: Yes No Active Prescriptions or Reported Meds Review of Systems Review of Systems Constitutional: no symptoms reported EENTM: no symptoms reported Respiratory: no symptoms reported Cardiovascular: no symptoms reported Gastrointestinal: other (cramping) Genitourinary: no symptoms reported Musculoskeletal: no symptoms reported Skin: no symptoms reported Psychiatric/Neurological: No Symptoms Reported Endocrine: No Symptoms Reported Hematologic/Lymphatic: No Symptoms Reported Past Ibssckl-Kpcxjh-Zpqyxi Hx Immunizations Up To Date PED Vaccines UTD: Yes Seasonal Allergies Seasonal Allergies: No Past Medical History Surgeries: No Respiratory: No Cardiac: No Neurological: No Genitourinary: No Gastrointestinal: Yes Gastroesophageal Reflux Musculoskeletal: No Endocrine: No HEENT: No Cancer: No Psychosocial: No Integumentary: No Blood Disorders: No Adverse Reaction/Blood Tranf: No Family Medical History Patient reports no known family medical history. Physical Exam Vital Signs Vital Signs - First Documented 04/25/22 09:45 Temp 36.3 Pulse 70 Resp 16 B/P (MAP) 106/72 (83) Pulse Ox 100 O2 Delivery Room Air Capillary Refill : Height, Weight, BMI Height: 5'1.00" Weight: 155lbs. 0.0oz. 70.002775aw; 29.3 BMI Method: General Appearance: WD/WN, no apparent distress HEENT: PERRL/EOMI Neck: full range of motion Cardiovascular: regular rate, rhythm Respiratory: lungs clear Gastrointestinal: normal bowel sounds, non tender, soft Pelvic: normal external exam Neurologic/Psychiatric: alert, normal mood/affect, oriented x 3 Skin: normal color Progress/Results/Core Measures Suspected Sepsis SIRS Temperature: Pulse: Respiratory Rate: Laboratory Tests 04/25/22 11:00: White Blood Count 8.5 Blood Pressure / Mean: Laboratory Tests 04/25/22 11:00: Creatinine 0.47L, Platelet Count 254, Total Bilirubin 0.4 Results/Orders Lab Results Laboratory Tests Test 04/25/22 09:45 04/25/22 11:00 Range/Units Urine Color YELLOW Urine Clarity CLOUDY Urine pH 8.5 5-9 Urine Specific [place] 1.015 L 1.016-1.022 Urine Protein NEGATIVE NEGATIVE Urine Glucose (UA) NEGATIVE NEGATIVE Urine Ketones NEGATIVE NEGATIVE Urine Nitrite NEGATIVE NEGATIVE Urine Bilirubin NEGATIVE NEGATIVE Urine Urobilinogen 0.2 < = 1.0 MG/DL Urine Leukocyte Esterase 3+ H NEGATIVE Urine RBC (Auto) NEGATIVE NEGATIVE Urine RBC NONE /HPF Urine WBC 2-5 /HPF Urine Squamous Epithelial Cells 2-5 /HPF Urine Crystals NONE /LPF Urine Bacteria TRACE /HPF Urine Casts NONE /LPF Urine Mucus SMALL H /LPF Urine Culture Indicated NO White Blood Count 8.5 4.3-11.0 10^3/uL Red Blood Count 4.19 3.80-5.11 10^6/uL Hemoglobin 12.9 11.5-16.0 g/dL Hematocrit 36 35-52 % Mean Corpuscular Volume 86 80-99 fL Mean Corpuscular Hemoglobin 31 25-34 pg Mean Corpuscular Hemoglobin Concent 36 32-36 g/dL Red Cell Distribution Width 12.2 10.0-14.5 % Platelet Count 254 130-400 10^3/uL Mean Platelet Volume 9.9 9.0-12.2 fL Immature Granulocyte % (Auto) 0 % Neutrophils (%) (Auto) 71 42-75 % Lymphocytes (%) (Auto) 22 12-44 % Monocytes (%) (Auto) 5 0-12 % Eosinophils (%) (Auto) 1 0-10 % Basophils (%) (Auto) 1 0-10 % Neutrophils # (Auto) 6.1 1.8-7.8 10^3/uL Lymphocytes # (Auto) 1.9 1.0-4.0 10^3/uL Monocytes # (Auto) 0.4 0.0-1.0 10^3/uL Eosinophils # (Auto) 0.1 0.0-0.3 10^3/uL Basophils # (Auto) 0.1 0.0-0.1 10^3/uL Immature Granulocyte # (Auto) 0.0 0.0-0.1 10^3/uL Sodium Level 134 L 135-145 MMOL/L Potassium Level 3.7 3.6-5.0 MMOL/L Chloride Level 102 98-107 MMOL/L Carbon Dioxide Level 22 21-32 MMOL/L Anion Gap 10 5-14 MMOL/L Blood Urea Nitrogen 6 L 7-18 MG/DL Creatinine 0.47 L 0.60-1.30 MG/DL Estimat Glomerular Filtration Rate 137 BUN/Creatinine Ratio 13 Glucose Level 86 70-105 MG/DL Calcium Level 8.8 8.5-10.1 MG/DL Corrected Calcium 8.7 8.5-10.1 MG/DL Magnesium Level 1.8 1.6-2.4 MG/DL Total Bilirubin 0.4 0.1-1.0 MG/DL Aspartate Amino Transf (AST/SGOT) 14 5-34 U/L Alanine Aminotransferase (ALT/SGPT) 13 0-55 U/L Alkaline Phosphatase 61 40-136 U/L Total Protein 6.8 6.4-8.2 GM/DL Albumin 4.1 3.2-4.5 GM/DL Human Chorionic Gonadotropin, Quant 73000 H <5 MIU/ML My Orders Orders - ANDREA LOWRY MD Cbc With Automated Diff (04/25/22 09:50) Comprehensive Metabolic Panel (04/25/22 09:50) Hcg,Quantitative (04/25/22 09:50) Magnesium (04/25/22 09:50) Ua Culture If Indicated (04/25/22 09:50) Us Ob<14 Wks Sngle W/Transvag (04/25/22 09:54) Vital Signs/I&O 04/25/22 09:45 Temp 36.3 Pulse 70 Resp 16 B/P (MAP) 106/72 (83) Pulse Ox 100 O2 Delivery Room Air Capillary Refill : Progress Note : Progress Note UTERINE CRAMPS: UTI & FIBROID UTERUS - ULTRASOUND PELVIS: see report, shows fibroid, 10 weeks and 2 days, FHR is 183 bpm - CBC/CMP: unremarkable - s. HC,000 - UA is positive for leukocyte esterase -Keep OB appointment for next Sunday -Adequate hydration, at least 8 glasses water/ day - Return to ER if symptom worsen - Keflex 500mg bid for 5 days -The patient was seen in the ED, and treated appropriately to presentation at a specific point in time. Patient is informed that there is a possibility that disease and illness can evolve and change in acuity rapidly or slowly after patient is discharged from the ER. Precautionary advice given to the patient for immediate return to ER if symptoms worsen or do not resolve, and to seek emergency care sooner rather than later. Pt also advised on the importance of PCP follow up and compliance with management and follow up plan with PCP and/or specialist, as this is part of the management plan. Pt verbally expressed understanding. Diagnostic Imaging Diagonstic Imaging: Ultrasound Plain Films/CT/US/NM/MRI: abdomen Comments [facility]. [place], [place] NAME: LAYLA RIOS [facility] REC#: [id number] PT STATUS: REG ER : 2000 PHYSICIAN: ANDREA LOWRY MD ADMIT DATE: 04/25/22/ER FS Draft Date of Exam:04/25/22 US OB<14 WKS SNGLE W/TRANSVAG INDICATION: Cramping, positive . EXAMINATION: OB sonogram, less than 14 weeks, 04/25/2022. FINDINGS: The uterus measures 10.4 x 6.3 x 8.1 cm. Along the anterior right aspect of the uterus, there is a heterogeneous large lesion which is hypervascular. This measures 3.4 x 3.5 x 4.3 cm, presumably a fibroid. This could be reevaluated at a short-term follow-up. There is an intrauterine gestation with current measurements corresponding with a 10 week 2 day . A large yolk sac is noted. Heart rate is approximately 183 bpm. Placenta is anterior. Within the left ovary, there is a 1.4 cm simple-appearing cyst, likely a corpus luteal cyst. There is normal vascularity to the ovary. The right ovary is unremarkable. No adnexal mass is appreciated. There is no free fluid. IMPRESSION: 1. Single live intrauterine gestation measuring 10 weeks 2 days. 2. Large heterogeneous markedly hypervascular lesion in the uterus, presumably a fibroid. Short-term follow-up recommended. 3. Corpus luteal cyst, left ovary. Dictated on workstation # [id number] Dict: 04/25/22 1117 Trans: 04/25/22 1126 [id number] Interpreted by: MARIO JOHNS MD Electronically signed by: Departure Impression Primary Impression: Dehydration during Additional Impressions: UTI (urinary tract infection) in in first trimester Uterine fibroid during , antepartum Disposition: HOME, SELF-CARE Condition: Stable Departure-Patient Inst. Referrals: NO,LOCAL PHYSICIAN (PCP/Family) Primary Care Physician Patient Instructions: Asymptomatic Bacteriuria, Urinary Tract Infections in , Why Water Is Important to Health, Dehydration, Adult ED, Uterine Fibroids (DC) Add. Discharge Instructions: -Keep OB appointment for next Sunday -Adequate hydration, at least 8 glasses water/ day - Return to ER if symptom worsen - Keflex 500mg bid for 5 days All discharge instructions reviewed with patient and/or family. Voiced unders tanding. Scripts Cephalexin (Cephalexin) 500 Mg Tablet 500 MG PO BID for 5 Days, #10 TAB Prov: ANDREA LOWRY MD 04/25/22 Work/School Note: Work Release Form Date Seen in the Emergency Department: Apr 25, 2022 Return to Work: Apr 26, 2022 Restrictions: No Restrictions ANDREA LOWRY MD Apr 25, 2022 09:48
[2022-04-25 10:15] LABS: BILIRUBIN,URINE NEGATIVE (NEGATIVE); CLARITY,URINE CLOUDY; COLOR,URINE YELLOW; GLUCOSE, URINE (UA) NEGATIVE (NEGATIVE); KETONES,URINE NEGATIVE (NEGATIVE); LEUKOCYTE ESTERASE ,URINE 3+ (NEGATIVE); NITRITE,URINE NEGATIVE (NEGATIVE); PH,URINE 8.5 (5-9); PROTEIN,URINE NEGATIVE (NEGATIVE)
[2022-04-25 10:16] LABS: BACTERIA,URINE TRACE /HPF
[2022-04-25 11:06] LABS: BASOPHILS # (AUTO) 0.1 10^3/uL (0.0-0.1); BASOPHILS % (AUTO) 1 % (0-10); EOSINOPHILS # (AUTO) 0.1 10^3/uL (0.0-0.3); EOSINOPHILS % (AUTO) 1 % (0-10); HEMATOCRIT 36 % (35-52); HEMOGLOBIN 12.9 g/dL (11.5-16.0); LYMPHOCYTES # (AUTO) 1.9 10^3/uL (1.0-4.0); LYMPHOCYTES % (AUTO) 22 % (12-44); MEAN CORPUSCULAR HEMOGLOBIN 31 pg (25-34); MEAN CORPUSCULAR HGB CONC 36 g/dL (32-36); MEAN CORPUSCULAR VOLUME 86 fL (80-99); MEAN PLATELET VOLUME 9.9 fL (9.0-12.2); MONOCYTES # (AUTO) 0.4 10^3/uL (0.0-1.0); MONOCYTES % (AUTO) 5 % (0-12); NEUTROPHILS # (AUTO) 6.1 10^3/uL (1.8-7.8); NEUTROPHILS % (AUTO) 71 % (42-75); PLATELET COUNT 254 10^3/uL (130-400); WHITE BLOOD COUNT 8.5 10^3/uL (4.3-11.0)
--- NOTE | 2022-04-25 11:26 | Diagnostic Imaging Report ---
INDICATION: Cramping, positive . EXAMINATION: OB sonogram, less than 14 weeks, 04/25/2022. FINDINGS: The uterus measures 10.4 x 6.3 x 8.1 cm. Along the anterior right aspect of the uterus, there is a heterogeneous large lesion which is hypervascular. This measures 3.4 x 3.5 x 4.3 cm, presumably a fibroid. This could be reevaluated at a short-term follow-up. There is an intrauterine gestation with current measurements corresponding with a 10 week 2 day . A large yolk sac is noted. Heart rate is approximately 183 bpm. Placenta is anterior. Within the left ovary, there is a 1.4 cm simple-appearing cyst, likely a corpus luteal cyst. There is normal vascularity to the ovary. The right ovary is unremarkable. No adnexal mass is appreciated. There is no free fluid. IMPRESSION: 1. Single live intrauterine gestation measuring 10 weeks 2 days. 2. Large heterogeneous markedly hypervascular lesion in the uterus, presumably a fibroid. Short-term follow-up recommended. 3. Corpus luteal cyst, left ovary. Dictated by: Dictated on workstation # [id number]
[2022-04-25 11:39] LABS: BILIRUBIN,TOTAL 0.4 MG/DL (0.1-1.0); CALCIUM 8.8 MG/DL (8.5-10.1); CREATININE SERUM 0.47 MG/DL (0.60-1.30); MAGNESIUM 1.8 MG/DL (1.6-2.4); POTASSIUM 3.7 MMOL/L (3.6-5.0); TOTAL PROTEIN 6.8 GM/DL (6.4-8.2)
[2022-04-25 11:40] LABS: ALBUMIN 4.1 GM/DL (3.2-4.5)
[2022-04-25] MEDS ORDERED: CEPH500T PO (12:31)
[2022-04-25 12:40] VITALS: BP 110/72
== END 2022-04-25 12:42 | disposition home or self-care (01) ==
LOC: EDUNIT# 09:40 → ER FS 09:42
DX: O23.41 Unspecified infection of urinary tract in pregnancy, first trimester (principal); N39.0 Urinary tract infection, site not specified; O34.11 Maternal care for benign tumor of corpus uteri, first trimester; O99.281 Endocrine, nutritional and metabolic diseases complicating pregnancy, first trimester; E86.0 Dehydration; Z3A.10 10 weeks gestation of pregnancy; Z28.310 Unvaccinated for COVID-19
CPT/HCPCS: 36415; 76801; 76817; 80053; 81000; 83735; 84702; 85025

== ENCOUNTER 2022-06-12 14:34 | Emergency (ER) | payer MEDICAID ==
[~2022-06-12] VITALS: Ht 157 cm; Wt 56.4 kg
[~2022-06-12 14:34] MED LIST: CEPH500T PO
[2022-06-12 14:47] VITALS: BP 120/56
[2022-06-12 14:54] LABS: BILIRUBIN,URINE NEGATIVE (NEGATIVE); CLARITY,URINE CLEAR; COLOR,URINE YELLOW; GLUCOSE, URINE (UA) NEGATIVE (NEGATIVE); KETONES,URINE 2+ (NEGATIVE); LEUKOCYTE ESTERASE ,URINE 1+ (NEGATIVE); NITRITE,URINE NEGATIVE (NEGATIVE); PROTEIN,URINE NEGATIVE (NEGATIVE)
[2022-06-12 14:59] LABS: BACTERIA,URINE TRACE /HPF
[2022-06-12] MEDS ORDERED: NS IV 1000 ML 1,000 ML IV STA ×2 (15:12→15:56)
[2022-06-12] MEDS ORDERED: ACETAMINOPHEN 325 MG TABLET PO STA (15:12)
[2022-06-12 15:27] LABS: BASOPHILS % (AUTO) 1 % (0-10); EOSINOPHILS % (AUTO) 0 % (0-10); HEMATOCRIT 32 % (35-52); HEMOGLOBIN 11.5 g/dL (11.5-16.0); LYMPHOCYTES # (AUTO) 0.2 10^3/uL (1.0-4.0); LYMPHOCYTES % (AUTO) 2 % (12-44); MEAN CORPUSCULAR HEMOGLOBIN 31 pg (25-34); MEAN CORPUSCULAR HGB CONC 36 g/dL (32-36); MEAN CORPUSCULAR VOLUME 85 fL (80-99); MEAN PLATELET VOLUME 9.8 fL (9.0-12.2); MONOCYTES # (AUTO) 0.5 10^3/uL (0.0-1.0); MONOCYTES % (AUTO) 7 % (0-12); NEUTROPHILS # (AUTO) 6.9 10^3/uL (1.8-7.8); NEUTROPHILS % (AUTO) 90 % (42-75); PLATELET COUNT 187 10^3/uL (130-400); WHITE BLOOD COUNT 7.7 10^3/uL (4.3-11.0)
[2022-06-12] MEDS ORDERED: cefTRIAXone 1 GM PRE-MIX 50 ML IV STA (15:28)
--- NOTE | 2022-06-12 15:35 | ED General ---
General Chief Complaint: COVID19 Suspect/Confirmed Stated Complaint: SUPRAPUBIC PAIN; COVID+ Nursing Triage Note: Patient has presented to ER with cc of mid lower cramping - she believes that she has a urinary tract infection. Patient reports that she is 18 weeks and she had a UTI about 6 weeks ago with the same symptoms. Patient reports that she tested positive for covid this morning - she has congestion and a sore throat. Source of Information: Patient History of Present Illness Date Seen by Provider: Jun 12, 2022 Time Seen by Provider: 14:41 Initial Comments 21-year-old female that is 18 weeks complaining of lower abdominal cramping. She states this feels similar to when she had a UTI a few weeks ago. She also tested positive for COVID this morning due to congestion and a sore throat. She had tried taking some Tylenol to help with the cramping but it was not helping. She denies any vaginal bleeding or discharge. She follows with Dr. DAVE for her . Timing/Duration: 12-24 Hours Severity: Moderate Modifying Factors: worse with Movement Associated Systoms: No Chest Pain, No Cough, No Diaphoresis, No Fever/Chills, No Headaches; Loss of Appetite, Malaise, Nausea/Vomiting; No Rash, No Seizure, No Shortness of Air, No Syncope, No Weakness; Other (Sore throat) Allergies and Home Medications Allergies Coded Allergies: No Known Drug Allergies (Unverified , 08/12/18) Patient Home Medication List Home Medication List Reviewed: Yes Cephalexin (Cephalexin) 500 Mg Capsule, 500 MG PO TID Prescribed by: GUSTABO LEDEZMA on 06/12/22 1536 Discontinued Medications Cephalexin (Cephalexin) 500 Mg Tablet, 500 MG PO BID Prescribed by: ANDREA LOWRY MD on 04/25/22 1231 Review of Systems Review of Systems Constitutional: see HPI; No chills, No fever EENTM: see HPI Respiratory: no symptoms reported Cardiovascular: no symptoms reported Gastrointestinal: see HPI Genitourinary: No dysuria : Yes Musculoskeletal: no symptoms reported Skin: No rash Psychiatric/Neurological: No Symptoms Reported Past [facility]-P[facility]-[place] Hx Patient Social History Tobacco Use?: No Use of E-Cig and/or Vaping dev: No Substance use?: No Alcohol Use?: No Immunizations Up To Date PED Vaccines UTD: Yes Seasonal Allergies Seasonal Allergies: No Past Medical History Surgeries: No Respiratory: No Cardiac: No Neurological: No Genitourinary: No Gastrointestinal: Yes Gastroesophageal Reflux Musculoskeletal: No Endocrine: No HEENT: No Cancer: No Psychosocial: No Integumentary: No Blood Disorders: No Adverse Reaction/Blood Tranf: No Family Medical History Patient reports no known family medical history. Physical Exam Vital Signs Vital Signs - First Documented 06/12/22 14:47 Temp 36.7 Pulse 100 Resp 16 B/P (MAP) 120/56 (77) Pulse Ox 100 O2 Delivery Room Air Capillary Refill : Height, Weight, BMI Height: 5'1.00" Weight: 155lbs. 0.0oz. 70.624370mq; 22.00 BMI Method: General Appearance: No Apparent Distress, WD/WN HEENT: PERRL/EOMI, Pharynx Normal, Moist Mucous Membranes Neck: Full Range of Motion, Normal Inspection, Non Tender, Supple Respiratory: Chest Non Tender, Lungs Clear, Normal Breath Sounds, No Accessory Muscle Use, No Respiratory Distress Cardiovascular: Regular Rate, Rhythm, Normal Peripheral Pulses Gastrointestinal: Normal Bowel Sounds, No Pulsatile Mass, Soft, Distended (Gravid uterus); No Guarding, No Rebound; Tenderness (Tenderness to left lower quadrant and uterus) Rectal: Deferred Back: No CVA Tenderness Extremity: Normal Capillary Refill, Normal Inspection, No Pedal Edema Neurologic/Psychiatric: Alert, Oriented x3, beef cattle grazier II-XII Norm as Tested Skin: Normal Color, Warm/Dry Progress/Results/Core Measures Suspected Sepsis SIRS Temperature: Pulse: 100 Respiratory Rate: 16 Laboratory Tests 06/12/22 15:17: White Blood Count 7.7 Blood Pressure 120 /56 Mean: 77 Laboratory Tests 06/12/22 15:17: Creatinine 0.43L, Platelet Count 187, Total Bilirubin 0.2 Results/Orders Lab Results Laboratory Tests Test 06/12/22 14:40 06/12/22 15:17 Range/Units Urine Color YELLOW Urine Clarity CLEAR Urine pH 6.0 5-9 Urine Specific [place] 1.025 H 1.016-1.022 Urine Protein NEGATIVE NEGATIVE Urine Glucose (UA) NEGATIVE NEGATIVE Urine Ketones 2+ H NEGATIVE Urine Nitrite NEGATIVE NEGATIVE Urine Bilirubin NEGATIVE NEGATIVE Urine Urobilinogen 0.2 < = 1.0 MG/DL Urine Leukocyte Esterase 1+ H NEGATIVE Urine RBC (Auto) NEGATIVE NEGATIVE Urine RBC NONE /HPF Urine WBC 10-25 H /HPF Urine Squamous Epithelial Cells 2-5 /HPF Urine Crystals NONE /LPF Urine Bacteria TRACE /HPF Urine Casts NONE /LPF Urine Mucus NEGATIVE /LPF Urine Culture Indicated YES White Blood Count 7.7 4.3-11.0 10^3/uL Red Blood Count 3.75 L 3.80-5.11 10^6/uL Hemoglobin 11.5 11.5-16.0 g/dL Hematocrit 32 L 35-52 % Mean Corpuscular Volume 85 80-99 fL Mean Corpuscular Hemoglobin 31 25-34 pg Mean Corpuscular Hemoglobin Concent 36 32-36 g/dL Red Cell Distribution Width 12.4 10.0-14.5 % Platelet Count 187 130-400 10^3/uL Mean Platelet Volume 9.8 9.0-12.2 fL Immature Granulocyte % (Auto) 1 % Neutrophils (%) (Auto) 90 H 42-75 % Lymphocytes (%) (Auto) 2 L 12-44 % Monocytes (%) (Auto) 7 0-12 % Eosinophils (%) (Auto) 0 0-10 % Basophils (%) (Auto) 1 0-10 % Neutrophils # (Auto) 6.9 1.8-7.8 10^3/uL Lymphocytes # (Auto) 0.2 L 1.0-4.0 10^3/uL Monocytes # (Auto) 0.5 0.0-1.0 10^3/uL Eosinophils # (Auto) 0.0 0.0-0.3 10^3/uL Basophils # (Auto) 0.0 0.0-0.1 10^3/uL Immature Granulocyte # (Auto) 0.1 0.0-0.1 10^3/uL Neutrophils % (Manual) 83 % Lymphocytes % (Manual) 3 % Monocytes % (Manual) 8 % Metamyelocytes % 1 % Band Neutrophils 5 % Toxic Granulation 1+ Platelet Estimate NORMAL Blood Morphology Comment NORMAL Sodium Level 133 L 135-145 MMOL/L Potassium Level 3.3 L 3.6-5.0 MMOL/L Chloride Level 100 98-107 MMOL/L Carbon Dioxide Level 20 L 21-32 MMOL/L Anion Gap 13 5-14 MMOL/L Blood Urea Nitrogen 5 L 7-18 MG/DL Creatinine 0.43 L 0.60-1.30 MG/DL Estimat Glomerular Filtration Rate 140 BUN/Creatinine Ratio 12 Glucose Level 84 70-105 MG/DL Calcium Level 8.7 8.5-10.1 MG/DL Corrected Calcium 9.0 8.5-10.1 MG/DL Total Bilirubin 0.2 0.1-1.0 MG/DL Aspartate Amino Transf (AST/SGOT) 25 5-34 U/L Alanine Aminotransferase (ALT/SGPT) 18 0-55 U/L Alkaline Phosphatase 63 40-136 U/L Total Protein 6.3 L 6.4-8.2 GM/DL Albumin 3.6 3.2-4.5 GM/DL Lipase 12 8-78 U/L My Orders Orders - GUSTABO LEDEZMA MD Ua Culture If Indicated (06/12/22 14:40) Urine Bedside (06/12/22 14:40) Heart Tones (06/12/22 14:50) Urine Culture (06/12/22 14:40) Comprehensive Metabolic Panel (06/12/22 15:12) Lipase (06/12/22 15:12) Ed Iv/Invasive Line Start (06/12/22 15:12) Cbc With Automated Diff (06/12/22 15:12) Ns Iv 1000 Ml (Sodium Chloride 0.9%) (06/12/22 15:12) Acetaminophen Tablet/Caplet (Tylenol T (06/12/22 15:12) Ceftriaxone 1 Gm Pre-Mix (Rocephin 1 Gm (06/12/22 15:28) Manual Differential (06/12/22 15:17) Ns Iv 1000 Ml (Sodium Chloride 0.9%) (06/12/22 15:56) Vital Signs/I&O 06/12/22 14:47 Temp 36.7 Pulse 100 Resp 16 B/P (MAP) 120/56 (77) Pulse Ox 100 O2 Delivery Room Air Capillary Refill : Blood Pressure Mean: 77 Progress Note #1: Progress Note Obtain basic labs and urinalysis. Give normal saline 1 L IV fluid bolus for hydration. Acetaminophen 650 mg p.o. for pelvic and abdominal cramping. Progress Note #2: Progress Note Urinalysis did show signs of UTI with 1+ leukocyte esterase, 2+ ketones, bacteria in her urine with white blood cells. I called and discussed with Dr. DAVE and he was okay with the patient getting ceftriaxone and IV fluids here in the ED. Continue with cephalexin at home. Encourage fluids and rest as well as acetaminophen for the cramping pain. Updated pt and will give 2nd L of NS prior to discharge to home. Departure Impression Primary Impression: UTI (urinary tract infection) in in second trimester Additional Impressions: COVID-19 virus infection Dehydration during Disposition: HOME, SELF-CARE Condition: Stable Departure-Patient Inst. Decision time for Depature: 16:05 Referrals: ANAMARIA DAVE,LOCAL PHYSICIAN (PCP) Primary Care Physician Patient Instructions: Dehydration, Adult ED, COVID-19 ED, Urinary Tract Infection, Adult ED, COVID-19 and ED Add. Discharge Instructions: Stay well hydrated and keep sipping on fluids. Use acetaminophen to help with pain and cramping. Follow up with Dr. Dave for continued concerns. Take full course of antibiotics to treat for UTI. Quarantine and isolate for next 5 days while wearing a mask around others. Then you may be around others but continue to wear mask for 5 more days for a total of 10 days. All discharge instructions reviewed with patient and/or family. Voiced understanding. Scripts Cephalexin (Cephalexin) 500 Mg Capsule 500 MG PO TID for UTI for 5 Days, #15 CAP 0 Refills Prov: GUSTABO LEDEZMA MD 06/12/22 Work/School Note: Work Release Form Date Seen in the Emergency Department: Jun 12, 2022 Return to Work: Jun 19, 2022 Restrictions: Return-No Fever (24hrs) Other Restrictions Listed Below: Wear Mask around others until 06/22. GUSTABO LEDEZMA MD Jun 12, 2022 15:35
[2022-06-12] MEDS ORDERED: CEPH500C PO (15:36)
[2022-06-12 15:43] LABS: BILIRUBIN,TOTAL 0.2 MG/DL (0.1-1.0); CALCIUM 8.7 MG/DL (8.5-10.1); CREATININE SERUM 0.43 MG/DL (0.60-1.30); POTASSIUM 3.3 MMOL/L (3.6-5.0)
[2022-06-12 15:44] LABS: ALBUMIN 3.6 GM/DL (3.2-4.5); TOTAL PROTEIN 6.3 GM/DL (6.4-8.2)
[2022-06-12 15:49] LABS: BAND NEUTROPHILS 5 %; LYMPHOCYTES % (MANUAL) 3 %; NEUTROPHILS % (MANUAL) 83 %
[2022-06-12 15:50] LABS: METAMYELOCYTES % 1 %; MONOCYTES % (MANUAL) 8 %; PLATELET ESTIMATE NORMAL; RBC MORPH NORMAL; TOXIC GRANULATION/VACUOLAZATIO 1+
== END 2022-06-12 16:20 | disposition home or self-care (01) ==
LOC: EDUNIT# 14:34 → ER FS 14:36
DX: O23.42 Unspecified infection of urinary tract in pregnancy, second trimester (principal); N39.0 Urinary tract infection, site not specified; O99.282 Endocrine, nutritional and metabolic diseases complicating pregnancy, second trimester; E86.0 Dehydration; O99.512 Diseases of the respiratory system complicating pregnancy, second trimester; U07.1 COVID-19; Z3A.18 18 weeks gestation of pregnancy; Z28.310 Unvaccinated for COVID-19
CPT/HCPCS: 36415; 80053; 81000; 83690; 85007; 85027; 87088

== ENCOUNTER → 2022-06-29 | Outpatient (CLI) | payer MEDICAID ==
[~2022-06-29] MED LIST changes: +CEPH500C PO
--- NOTE | 2022-06-29 16:08 | Diagnostic Imaging Report ---
INDICATION: anatomy survey TECHNIQUE: Multiple real-time grayscale images were obtained over the gravid uterus. COMPARISON: 04/25/2022 FINDINGS: The cervix measures 4.3 cm in length. The fetus is in cephalic presentation. Placenta is anteriorly positioned and there is no previa. Maternal adnexa are suboptimally evaluated due to advanced gestational age. The amount of amniotic fluid is visually appropriate and the CONSTANTIN is normal at 15.67 cm. The following structures are visualized and normal: Four-chamber heart, stomach, kidneys, urinary bladder, three-vessel cord, umbilical cord insertion, left ventricular outflow tract, spine, profile, cerebellum, cisterna magna, cerebral ventricles, right ventricular outflow tract. Biometrical measurements are as follows: Biparietal 4.76 cm, age 20 weeks 3 days. Head circumference 18.20 cm, age 20 weeks 5 days. Abdominal circumference 14.46 cm, age 19 weeks 6 days. Femur length 3.16 cm, age 19 weeks 6 days. Sonographic estimate age: 20 weeks 2 days. Sonographic estimated date of delivery: 11/14/2022. Estimated Weight: 320 gm (+/- 47 gm). LMP percentile: 39%. heart rate: 152 beats per minute. number: 1 of 1. IMPRESSION: 1. Single live intrauterine with normal anatomy survey. Dictated by: Dictated on workstation # [id number]
== END ==
LOC: RAD FS 08:59
PROVIDERS: ATTEND Obstetrics & Gynecology
DX: Z36.1 Encounter for antenatal screening for raised alphafetoprotein level (principal)
CPT/HCPCS: 76805

== ENCOUNTER 2022-11-08 12:35 | Outpatient (CLI) | payer MEDICAID ==
[~2022-11-08] VITALS: Ht 159.9 cm; Wt 67.4 kg
[2022-11-08 13:04] VITALS: BP 113/69
[2022-11-08 13:05] LABS: BILIRUBIN,URINE NEGATIVE (NEGATIVE); CLARITY,URINE CLEAR; COLOR,URINE YELLOW; GLUCOSE, URINE (UA) NEGATIVE (NEGATIVE); KETONES,URINE NEGATIVE (NEGATIVE); LEUKOCYTE ESTERASE ,URINE 2+ (NEGATIVE); NITRITE,URINE NEGATIVE (NEGATIVE); PH,URINE 7.5 (5-9); PROTEIN,URINE NEGATIVE (NEGATIVE)
[2022-11-08 13:15] LABS: BACTERIA,URINE NEGATIVE /HPF; SQUAMOUS EPITHELIAL CELL,UR 0-2 /HPF; TRICHOMONAS,URINE FEW /HPF; WBC,URINE 0-2 /HPF
--- NOTE | 2022-11-09 08:42 | Physician Query-Final Dx ---
MARIANN11/09/22 0842: Clinic Account Progress/Dx Physician Query: Please give diagnosis Please include # weeks gestation Date of Service Nov 08, 2022 at 12:35 ANAMARIA DAVE DO 11/09/22 1428: Clinic Account Progress/Dx DIAGNOSIS: Diagnosis 38 week IUP Irregular contractions MARIANN,JulNov 09, 2022 08:42 ANAMARIA DAVE DO Nov 09, 2022 14:28
== END 2022-11-08 14:30 | disposition home or self-care (01) ==
LOC: WSo 12:35 → LDRP 12:35 → WSo 14:30
PROVIDERS: ATTEND Obstetrics & Gynecology
DX: O47.1 False labor at or after 37 completed weeks of gestation (principal); Z3A.38 38 weeks gestation of pregnancy
CPT/HCPCS: 81000; 99213

== ENCOUNTER 2022-11-13 17:59 | Inpatient (IN) | payer MEDICAID ==
[2022-11-13] VITALS (22 sets, daily range): BP systolic 99–126; BP diastolic 57–85
[~2022-11-13] VITALS: Ht 154.9 cm; Wt 68.2 kg
[2022-11-13] MEDS ORDERED: AMPICILLIN FOR IV USE 2,000 MG in NS (IVPB) 50 ML IV SCH (18:52)
[2022-11-13 19:19] LABS: BASOPHILS # (AUTO) 0.1 10^3/uL (0.0-0.1); BASOPHILS % (AUTO) 1 % (0-10); EOSINOPHILS # (AUTO) 0.2 10^3/uL (0.0-0.3); EOSINOPHILS % (AUTO) 1 % (0-10); HEMATOCRIT 36 % (35-52); HEMOGLOBIN 12.2 g/dL (11.5-16.0); LYMPHOCYTES # (AUTO) 1.9 10^3/uL (1.0-4.0); LYMPHOCYTES % (AUTO) 12 % (12-44); MEAN CORPUSCULAR HEMOGLOBIN 30 pg (25-34); MEAN CORPUSCULAR HGB CONC 34 g/dL (32-36); MEAN CORPUSCULAR VOLUME 86 fL (80-99); MEAN PLATELET VOLUME 10.6 fL (9.0-12.2); MONOCYTES # (AUTO) 0.9 10^3/uL (0.0-1.0); MONOCYTES % (AUTO) 5 % (0-12); NEUTROPHILS # (AUTO) 12.6 10^3/uL (1.8-7.8); NEUTROPHILS % (AUTO) 80 % (42-75); PLATELET COUNT 271 10^3/uL (130-400); WHITE BLOOD COUNT 15.9 10^3/uL (4.3-11.0)
[2022-11-13] MEDS: D5 LR IV SOLUTION 1,000 ML IV SCH (19:24)
[2022-11-13] MEDS ORDERED: fentaNYL 2 mcg/ml BUPIVA 0.125 100 ML ONE (19:27)
[2022-11-13 19:55] LABS: EOSINOPHILS % (MANUAL) 1 %; LYMPHOCYTES % (MANUAL) 13 %; MONOCYTES % (MANUAL) 6 %; NEUTROPHILS % (MANUAL) 80 %; RBC MORPH NORMAL
[2022-11-13] MEDS ORDERED: BUPIVACAINE 0.25% 10 ML (SENSORCAINE) VIAL ONE (20:30)
[2022-11-13] MEDS ORDERED: fentaNYL INJ 100 MCG/2 ML AMP ONE (20:30)
[2022-11-13] MEDS: fentaNYL 2 mcg/ml BUPIVA 0.125 100 ML IV SCH (20:34)
[2022-11-13] MEDS ORDERED: CATHETER FLUSH 10 ML SYR IV PRN (21:00)
[2022-11-13] MEDS ORDERED: ONDANSETRON 4 MG/2 ML (SDV) Z0FRAN IV PRN (21:00)
[2022-11-13] MEDS ORDERED: NALOXONE 0.4 MG/ML 1 ML (NARCAN) VIAL IV PRN (21:00)
[2022-11-13] MEDS ORDERED: LACTATED RINGERS 1,000 ML IV ONE (21:00)
[2022-11-13] MEDS ORDERED: diphenhydrAMINE 50 MG/ML INJ (BENADRYL) IV PRN (21:15)
[2022-11-13 21:54] LABS: BILIRUBIN,URINE NEGATIVE (NEGATIVE); CLARITY,URINE CLEAR; COLOR,URINE YELLOW; GLUCOSE, URINE (UA) NEGATIVE (NEGATIVE); KETONES,URINE NEGATIVE (NEGATIVE); LEUKOCYTE ESTERASE ,URINE TRACE (NEGATIVE); NITRITE,URINE NEGATIVE (NEGATIVE); PROTEIN,URINE NEGATIVE (NEGATIVE)
[2022-11-13 21:58] LABS: BACTERIA,URINE TRACE /HPF; SQUAMOUS EPITHELIAL CELL,UR 0-2 /HPF; WBC,URINE 0-2 /HPF
[2022-11-13] MEDS: AMPICILLIN FOR IV USE 1,000 MG in NS (IVPB) 50 ML IV SCH (23:32)
[2022-11-14] VITALS (39 sets, daily range): BP systolic 94–172; BP diastolic 53–87
[2022-11-14] MEDS: AMPICILLIN FOR IV USE 1,000 MG in NS (IVPB) 50 ML IV SCH (03:30)
[2022-11-14] MEDS: D5 LR IV SOLUTION 1,000 ML IV SCH (03:30)
[2022-11-14] MEDS: fentaNYL 2 mcg/ml BUPIVA 0.125 100 ML IV SCH (03:50)
[2022-11-14] MEDS: CATHETER FLUSH 10 ML SYR IV SCH ×4 (06:00→20:39)
[2022-11-14] MEDS ORDERED: OXYTOCIN PRE-MIX DRIP 500 ML IV ONE ×2 (07:00→07:52)
[2022-11-14] MEDS: OXYTOCIN PRE-MIX DRIP 500 ML IV SCH ×2 (07:39→08:10)
--- NOTE | 2022-11-14 07:59 | History & Physical-OB ---
OB - Chief Complaint & HPI Date/Time Date of Admission: Date of Admission: Nov 13, 2022 at 18:35 Date seen by a Provider: Nov 14, 2022 Time Seen by a Provider: 07:00 Chief Complaint/History OB-Reason for Admission/Chief: Onset of Labor Hx : 3 Hx Para: 1 Expected Date of Delivery: Nov 16, 2022 Gestational Age in Weeks: 39 Gestational Age in Days: 4 Admission Nurse Assessment Rev: Yes History of Labs O neg Antibody neg RI RPR NR HBsAg NR HIV NR GC neg GBS pos Allergies and Home Medications Allergies Coded Allergies: No Known Drug Allergies (Unverified , 08/12/18) Patient Home Medication List Home Medication List Reviewed: Yes No Active Prescriptions or Reported Meds OB - History Hx of Present Care: Yes Ultrasounds: Normal mid trimester US Obstetrical Complications: None Medical Complications: None Obstetrical History Hx : 3 Hx Para: 1 Hx Total # of Abortions (Spona: 1 Delivery History Adverse Rxn to Tranfusion: No Patient Past Medical History nc Social History/Family History Alcohol Use: Denies Use Recreational Drug Use: No 2nd Hand Smoke Exposure: No Immunizations Influenza Vaccine Up-to-Date: No; Not Current Hepatitis A: Yes Hepatitis B: Yes OB - Admission Exam Physical Exam Vitals: Vital Signs 11/13/22 11/14/22 11/14/22 21:34 01:48 06:00 Temp 36.4 Pulse 86 Resp 18 B/P (MAP) 121/74 (90) Pulse Ox 99 O2 Delivery Room Air HEENT: NCAT Heart: Rhythm Normal Lungs: Clear Abdomen: Gravid Extremities: Normal Reflexes: Normal Cervical Dilatation: 6cm Effacement: 50% Station: -2 Membranes: Intact Heart Rate: 130's Accelerations: Accelerations Present Decelerations: No Decelerations Short Term Variability: Present [employer] Variability: Average (6-25) Contractions on Admission: < 5 Minutes Apart Intensity: Firm Labs Laboratory Tests Test 11/13/22 18:16 11/13/22 18:55 Range/Units Urine Color YELLOW Urine Clarity CLEAR Urine pH 6.0 5-9 Urine Specific [place] 1.010 L 1.016-1.022 Urine Protein NEGATIVE NEGATIVE Urine Glucose (UA) NEGATIVE NEGATIVE Urine Ketones NEGATIVE NEGATIVE Urine Nitrite NEGATIVE NEGATIVE Urine Bilirubin NEGATIVE NEGATIVE Urine Urobilinogen 1.0 < = 1.0 MG/DL Urine Leukocyte Esterase TRACE H NEGATIVE Urine RBC (Auto) NEGATIVE NEGATIVE Urine RBC NONE /HPF Urine WBC 0-2 /HPF Urine Squamous Epithelial Cells 0-2 /HPF Urine Crystals NONE /LPF Urine Bacteria TRACE /HPF Urine Casts NONE /LPF Urine Mucus NEGATIVE /LPF Urine Culture Indicated NO White Blood Count 15.9 H 4.3-11.0 10^3/uL Red Blood Count 4.13 3.80-5.11 10^6/uL Hemoglobin 12.2 11.5-16.0 g/dL Hematocrit 36 35-52 % Mean Corpuscular Volume 86 80-99 fL Mean Corpuscular Hemoglobin 30 25-34 pg Mean Corpuscular Hemoglobin Concent 34 32-36 g/dL Red Cell Distribution Width 12.7 10.0-14.5 % Platelet Count 271 130-400 10^3/uL Mean Platelet Volume 10.6 9.0-12.2 fL Immature Granulocyte % (Auto) 1 % Neutrophils (%) (Auto) 80 H 42-75 % Lymphocytes (%) (Auto) 12 12-44 % Monocytes (%) (Auto) 5 0-12 % Eosinophils (%) (Auto) 1 0-10 % Basophils (%) (Auto) 1 0-10 % Neutrophils # (Auto) 12.6 H 1.8-7.8 10^3/uL Lymphocytes # (Auto) 1.9 1.0-4.0 10^3/uL Monocytes # (Auto) 0.9 0.0-1.0 10^3/uL Eosinophils # (Auto) 0.2 0.0-0.3 10^3/uL Basophils # (Auto) 0.1 0.0-0.1 10^3/uL Immature Granulocyte # (Auto) 0.2 H 0.0-0.1 10^3/uL Neutrophils % (Manual) 80 % Lymphocytes % (Manual) 13 % Monocytes % (Manual) 6 % Eosinophils % (Manual) 1 % Blood Morphology Comment NORMAL OB - Assessment/Plan/Diagnosis Assessment Assessment: active labor Admission Dx 21 yo @ 39 weeks Active labor GBS pos Admission Status: Inpatient Order (span 2 midnights) Reason for Inpatient Admission: Active labor at 39 weeks Plan Plan: Expectant Management ANAMARIA DAVE DO Nov 14, 2022 07:59
--- NOTE | 2022-11-14 08:02 | OB Labor & Delivery Record ---
L&D History Date of Service Date of Service: Nov 14, 2022 History Expected Date of Delivery: Nov 16, 2022 Gestational Age in Weeks: 39 Hx : 3 Hx Para: 1 Complications Events: Routine care Operative Indications (Cesarea: N/A-Vaginal Delivery Intrapartal Events: None L&D Stage1 Stage One Onset of Labor - Date: Nov 14, 2022 Monitors and Tracing Monitor Mode: External Heart Rate: 135 Monitor Decelerations: None Station: 0 Half-Way Variability: Average (6-10) Short Term Variability: Present Presentation: Vertex Vital Signs VS - Last 72 Hours, by Label 11/13/22 11/13/22 11/13/22 11/13/22 18:45 19:51 20:17 20:23 Temp 36.8 36.8 Pulse 92 78 88 90 Resp 20 18 18 18 B/P (MAP) 125/70 114/74 (87) 126/83 (97) 117/70 (86) Pulse Ox 99 100 99 O2 Delivery Room Air Room Air Room Air Room Air 11/13/22 11/13/22 11/13/22 11/13/22 20:28 20:32 20:38 20:43 Pulse 82 73 80 82 Resp 18 18 18 18 B/P (MAP) 116/74 (88) 112/85 (94) 109/69 (82) 117/74 (88) Pulse Ox 99 98 98 98 O2 Delivery Room Air Room Air Room Air Room Air 11/13/22 11/13/22 11/13/22 11/13/22 20:49 20:53 20:58 21:03 Pulse 97 87 93 83 Resp 18 18 18 18 B/P (MAP) 125/79 (94) 121/79 (93) 113/65 (81) 112/67 (82) Pulse Ox 98 99 98 98 O2 Delivery Room Air Room Air Room Air Room Air 11/13/22 11/13/22 11/13/22 11/13/22 21:20 21:34 22:00 22:20 Pulse 83 96 78 64 Resp 18 18 18 18 B/P (MAP) 101/64 (76) 104/70 (81) 105/73 (84) 103/66 (78) Pulse Ox 99 99 O2 Delivery Room Air Room Air Room Air Room Air 11/13/22 11/13/22 11/13/22/24/23 22:35 22:50 23:04 23:19 Pulse 65 68 63 75 Resp 18 18 18 18 B/P (MAP) 100/59 (73) 103/57 (72) 101/62 (75) 101/60 (74) O2 Delivery Room Air Room Air Room Air Room Air 11/13/22 11/13/22 11/14/22 11/14/22 23:32 23:48 00:03 00:18 Pulse 68 66 61 64 Resp 18 18 18 18 B/P (MAP) 99/61 (74) 101/60 (74) 98/60 (73) 99/58 (72) O2 Delivery Room Air Room Air Room Air Room Air 11/14/22 11/14/22 11/14/22 11/14/22 00:33 00:48 01:04 01:19 Pulse 67 83 68 75 Resp 18 18 18 18 B/P (MAP) 103/59 (74) 101/57 (72) 99/63 (75) 101/62 (75) O2 Delivery Room Air Room Air Room Air Room Air 11/14/22 11/14/22 11/14/22 11/14/22 01:35 01:48 02:05 02:19 Temp 36.4 Pulse 66 81 89 81 Resp 18 18 18 18 B/P (MAP) 109/65 (80) 105/62 (76) 112/73 (86) 108/65 (79) O2 Delivery Room Air Room Air Room Air Room Air 11/14/22 11/14/22 11/14/22 11/14/22 02:33 03:05 03:19 03:35 Pulse 85 82 88 94 Resp 18 18 18 18 B/P (MAP) 112/73 (86) 109/72 (84) 104/68 (80) 107/66 (80) O2 Delivery Room Air Room Air Room Air Room Air 11/14/22 11/14/22 11/14/22 11/14/22 03:51 04:15 04:30 04:45 Pulse 109 85 74 76 Resp 18 18 18 18 B/P (MAP) 106/61 (76) 109/58 (75) 108/63 (78) 108/65 (79) O2 Delivery Room Air Room Air Room Air Room Air 11/14/22 11/14/22 11/14/2223 05:00 05:15 05:30 05:45 Pulse 75 82 82 85 Resp 18 18 18 18 B/P (MAP) 117/66 (83) 115/72 (86) 110/68 (82) 119/72 (88) O2 Delivery Room Air Room Air Room Air Room Air 11/14/22 06:00 Pulse 86 Resp 18 B/P (MAP) 121/74 (90) O2 Delivery Room Air Rupture of Membranes Spontaneous Ruture of Membrane: No Amniotic Membrane Rupture Time: 07:05 Amniotic Membrane Fluid Desc.: Clear Vaginal Bleeding Description: Normal Show Induction/Anesthesia Epidural Cath Placement - Time: 2024 Progress/Notes Patient admitted in active labor. Progressed after epidural and ampicillin dosing to complete and + 2 station where arom was performed L&D Stage2 Stage Two Stage II Date: Nov 14, 2022 Monitors and Tracing Monitor Mode: External Heart Rate: 135 Monitor Decelerations: None Half-Way Variability: Average (6-10) Short Term Variability: Present Position: Right Occiput Anterior Presentation: Vertex Cord Descript/Complications Cord Vessel Description: 3 Vessels Delivery Type Infant Delivery Method: Spontaneous Vaginal Anterior Shoulder: Right Episiotomy/Perineal Laceration Laceraction(s)/Extensions: No Condition of Infant Delivery 1 minute Comment: 9 5 minute Comment: 9 Notes Live male weight pending Condition of Infant Condition of : Living Exam: No Observed Abnormalities Resuscitation Resuscitation: N/A - Spontaneous Resp L&D Stage3 Stage Three Stage III Date: Nov 14, 2022 Pictocin Pitocin Administration Comment: 30 mu wide open after delivery of placenta Placenta Delivery Placenta Delivery: Spontaneous Delivery Summary Summary Estimated blood loss (mL): 250 Attending at delivery: Anamaria Dave DO Condition of Delivery Examined: Cervix Examined, Uterus Explored Post Hemorrhage: No Condition of Mother stable Condition of (s) stable ANAMARIA DAVE DO Nov 14, 2022 08:02
[2022-11-14] MEDS ORDERED: DIBUCAINE 1% OINTMENT 28 GM TUBE TOP PRN (08:15)
[2022-11-14] MEDS ORDERED: WITCH HAZEL(TUCKS) 40 EA JAR TOP PRN (08:15)
[2022-11-14] MEDS ORDERED: MEASLES,MUMPS,RUBELLA 1 EA INJ SQ ONE (08:15)
[2022-11-14] MEDS ORDERED: BENZOCAINE/MENTHOL (DERMOPLAST) 56 ML CAN TP PRN (08:15)
[2022-11-14] MEDS ORDERED: TETANUS,DIPTH,PERTUSS P/F (BOOSTRIX) 0.5 ML VIAL IM ONE (08:15)
[2022-11-14] MEDS ORDERED: NALOXONE 0.4 MG/ML 1 ML (NARCAN) VIAL IV PRN (08:15)
[2022-11-14] MEDS: IBUPROFEN 600 MG (MOTRIN) TAB PO SCH ×3 (08:37→20:37)
[2022-11-14] MEDS: ACETAMINOPHEN 500 MG TAB (TYLENOL) PO SCH ×2 (08:37→16:12)
[2022-11-14] MEDS: FERROUS SULF 325 MG (IRON) TAB PO SCH (09:44)
[2022-11-14] MEDS: DOCUSATE SODIUM 100 MG (COLACE) CAP PO SCH ×2 (09:44→20:38)
--- NOTE | 2022-11-14 11:17 | Anesthesia-Regional Post-Op ---
Regional Patient Condition Mental Status: Alert, Oriented x3 Circulation: Same as Pre-Op Headache: Absent Sensation: Full Recovery Motor Block: Absent Post Op Complications Complications None Follow Up Care/Instructions Patient Instructions None needed. Anesthesia/Patient Condition Patient is doing well, no complaints, stable vital signs, no apparent adverse anesthesia problems. No complications reported per nursing. CIERRA FREED CRNA Nov 14, 2022 11:17
[2022-11-14] MEDS: fentaNYL 2 mcg/ml BUPIVA 0.125 100 ML EPI SCH (11:29)
[2022-11-15] MEDS: ACETAMINOPHEN 500 MG TAB (TYLENOL) PO SCH ×2 (00:20→07:43)
[2022-11-15 00:22] VITALS: BP 101/57
[2022-11-15] MEDS: IBUPROFEN 600 MG (MOTRIN) TAB PO SCH ×3 (02:39→14:19)
[2022-11-15 03:38] VITALS: BP 104/55
[2022-11-15 06:00] LABS: BASOPHILS # (AUTO) 0.1 10^3/uL (0.0-0.1); BASOPHILS % (AUTO) 1 % (0-10); EOSINOPHILS # (AUTO) 0.4 10^3/uL (0.0-0.3); EOSINOPHILS % (AUTO) 3 % (0-10); HEMATOCRIT 31 % (35-52); HEMOGLOBIN 10.2 g/dL (11.5-16.0); LYMPHOCYTES # (AUTO) 2.9 10^3/uL (1.0-4.0); LYMPHOCYTES % (AUTO) 21 % (12-44); MEAN CORPUSCULAR HEMOGLOBIN 30 pg (25-34); MEAN CORPUSCULAR HGB CONC 33 g/dL (32-36); MEAN CORPUSCULAR VOLUME 89 fL (80-99); MEAN PLATELET VOLUME 10.7 fL (9.0-12.2); MONOCYTES # (AUTO) 0.7 10^3/uL (0.0-1.0); MONOCYTES % (AUTO) 5 % (0-12); NEUTROPHILS # (AUTO) 9.2 10^3/uL (1.8-7.8); NEUTROPHILS % (AUTO) 69 % (42-75); PLATELET COUNT 210 10^3/uL (130-400); WHITE BLOOD COUNT 13.4 10^3/uL (4.3-11.0)
[2022-11-15] MEDS: CATHETER FLUSH 10 ML SYR IV SCH (06:23)
[2022-11-15] MEDS ORDERED: PRENATAL VITAMIN 1 EA TAB PO SCH (07:00)
--- NOTE | 2022-11-15 07:12 | Postpartum Progress Note ---
Note Note Day # 1 Subjective: Patient is without complaints. Ambulating, voiding. Tolerating a regular diet without nausea or vomiting. Normal lochia. Pain is well controlled with oral pain medications. Objective: Physical Exam: General - Alert and oriented, no apparent distress Cardio - RRR, no murmurs Pulm - CTAB Abdomen - Soft, appropriately tender to palpation, non-distended, fundus firm at umbilicus Extremities - 1+ LE edema, negative Yari's bilaterally Assessment: Post- day # 1, status post vaginal delivery. Recovering well, hemodynamically stable\ Acute blood loss anemia Plan: Routine care. Encourage breast feeding. Encourage ambulation. Advised about orthostatic hypotension and told her to ambulate with caution. Ferrous sulfate supplementation. Plan for discharge 11/16 Vitals - Labs Vital Signs - I&O Vital Signs Date Time Temp Pulse Resp B/P (MAP) Pulse Ox O2 Delivery O2 Flow Rate FiO2 11/15/22 03:38 36.4 69 18 104/55 (71) 99 Room Air 11/15/22 00:22 36.5 68 18 101/57 (72) 98 Room Air 11/14/22 20:35 36.4 76 18 103/69 (80) 99 Room Air 11/14/22 20:25 Room Air 11/14/22 16:07 36.9 69 18 107/60 (76) 98 Room Air 11/14/22 12:32 36.8 84 18 119/66 (83) 97 Room Air 11/14/22 09:47 76 18 102/56 (71) Room Air 11/14/22 08:54 78 18 105/61 (76) Room Air 11/14/22 08:33 37.2 85 18 123/57 (79) Room Air 11/14/22 08:18 89 18 137/63 (87) Room Air 11/14/22 08:03 104 18 128/61 (83) Room Air 11/14/22 07:48 37.3 104 18 122/62 (82) Room Air 11/14/22 07:34 142 18 172/74 (106) Room Air 11/14/22 07:19 137 18 133/87 (102) Room Air I & O 11/15/22 07:00 Intake Total 1350 ml Balance 1350 ml Labs Laboratory Tests 11/15/22 05:22: White Blood Count 13.4H, Red Blood Count 3.45L, Hemoglobin 10.2L, Hematocrit 31L , Mean Corpuscular Volume 89, Mean Corpuscular Hemoglobin 30, Mean Corpuscular Hemoglobin Concent 33, Red Cell Distribution Width 13.2, Platelet Count 210, Mean Platelet Volume 10.7, Immature Granulocyte % (Auto) 1, Neutrophils (%) (Auto) 69, Lymphocytes (%) (Auto) 21, Monocytes (%) (Auto) 5, Eosinophils (%) (Auto) 3, Basophils (%) (Auto) 1, Neutrophils # (Auto) 9.2H, Lymphocytes # (Auto) 2.9, Monocytes # (Auto) 0.7, Eosinophils # (Auto) 0.4H, Basophils # (Auto) 0.1, Immature Granulocyte # (Auto) 0.2H TAYNA HENSON Nov 15, 2022 07:12
[2022-11-15] MEDS: FERROUS SULF 325 MG (IRON) TAB PO SCH (07:43)
[2022-11-15] MEDS: DOCUSATE SODIUM 100 MG (COLACE) CAP PO SCH (07:43)
[2022-11-15 07:53] VITALS: BP 97/57
[2022-11-15] MEDS ORDERED: RHO(D) IMMUNE GLOBULIN 300 MCG/2 ML SYRINGE IM/IV ONE (08:45)
--- NOTE | 2022-11-15 10:17 | Discharge Inst-Women's Service ---
Discharge Inst-Women's Serv Depart Medication/Instructions New, Converted or Re-Newed RX: Transmitted to Pharmacy Final Diagnosis PPD 1 NVD Problems Reviewed?: Yes Consults/Follow Up Additional Follow Up: Yes Orders/Referrals Dr. Dave in 6 weeks Activity Activity: Activity as Tolerated Driving Instructions: No Driving for 1 Week NO SMOKING: NO SMOKING Nothing Inside Vagina: No Douching, No [place], No Tampons Diet Discharge Diet: No Restrictions Symptoms to Report to : Bleeding Excessive, Pain Increased, Fever Over 101 Degrees F, Vaginal Bleeding Increase, Questions/Concerns For Any Problems or Questions: Contact Your Physician ANAMARIA DAVE DO Nov 15, 2022 10:17 am
[2022-11-15] MEDS ORDERED: DOCU100C37 PO (10:18)
[2022-11-15] MEDS ORDERED: BENZ78AE5 TP (10:18)
[2022-11-15] MEDS ORDERED: FERR325T24 PO (10:18)
[2022-11-15] MEDS ORDERED: IBUP-844 PO (10:18)
[2022-11-15] MEDS ORDERED: ACET-93 PO (10:18)
[2022-11-15] MEDS ORDERED: DIBU30OI TOP (10:18)
[2022-11-15] MEDS ORDERED: PNV1TABL67 PO (10:18)
[2022-11-15 12:00] VITALS: BP 109/59
[2022-11-15] MEDS ORDERED: RHO(D) IMMUNE GLOBULIN 300 MCG/2 ML SYRINGE ONE (14:17)
== END 2022-11-15 14:40 | disposition home or self-care (01) | DRG 806 ==
LOC: WSo 17:59 → LDRP 18:03 → WSo 18:35 → LDRP 18:35
PROVIDERS: ADMIT Obstetrics & Gynecology; ATTEND Obstetrics & Gynecology
PROC: 10E0XZZ Delivery of Products of Conception, External Approach (ICD-10-PCS; principal; 2022-11-14)
DX: O99.824 Streptococcus B carrier state complicating childbirth (principal); D62 Acute posthemorrhagic anemia; Z37.0 Single live birth; Z3A.39 39 weeks gestation of pregnancy; O90.81 Anemia of the puerperium; Z28.39 Other underimmunization status; Z28.9 Immunization not carried out for unspecified reason
CPT/HCPCS: 36415; 81000; 83033; 85007; 85025; 85027; 86780; 86850; 86900; 86901; 99213

== ENCOUNTER 2023-02-18 21:26 | Emergency (ER) | payer MEDICAID ==
[~2023-02-18 21:26] MED LIST changes: +ACET-93 PO; +BENZ78AE5 TP; +DIBU30OI TOP; +DOCU100C37 PO; +FERR325T24 PO; +IBUP-844 PO; +PNV1TABL67 PO
[2023-02-18] MEDS ORDERED: dexAMETHasone INJ 10 MG/ML 1 ML VIAL IM STA (21:45)
[2023-02-18] MEDS ORDERED: methylPREDNISolone 40 MG/ML (DEPO MEDROL) VIAL IM STA (21:45)
--- NOTE | 2023-02-18 21:51 | ED Integumentary General ---
"General Chief Complaint: Skin/Wound Problems Stated Complaint: POISON ANGELA|[facility] Triage Note: Pt presents with a rash to bilateral legs, left arm, and abdomen. Pt states she thinks she has poison angela Source: patient History of Present Illness Date Seen by Provider: Feb 18, 2023 Time Seen by Provider: 21:33 Initial Comments 22-year-old female presenting with complaints of possible poison angela. She has had a rash that started on her left arm approximately week ago. 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 She has tried doing calamine Caladryl lotion without improvement. She denies any difficulty swallowing or breathing. She has had no wheezing. The rash is spread from her left wrist and hand to her legs and abdominal wall. Timing/Duration: week Severity: mild Location: torso, hands, extremities (lower) Possible Cause: other (possible poison angela) Modifying Factors: improves with calamine lotion (helps some but not clearing); worse with scratching Associated Symptoms: blisters; No edema, No fever, No flushing, No headache, No hives, No jaundice, No malaise, No nasal congestion, No numbness, No pallor, No paresthesia, No petechiae; rash; No sore throat, No swelling/mass/lumps, No tingling Allergies and Home Medications Allergies Coded Allergies: No Known Drug Allergies (Unverified , 08/12/18) Patient Home Medication List Home Medication List Reviewed: Yes Acetaminophen (Acetaminophen) 500 Mg Tablet, 1,000 MG PO Q8H Prescribed by: ANAMARIA DAVE on 11/15/22 1018 Benzocaine/Menthol (Dermoplast Pain Relieving H. Rivera Colon) 20 %-0.5 % Aerosol, 56 EA TP UD PRN for PAIN- SEE INSTRUCTIONS Prescribed by: ANAMARIA DAVE on 11/15/22 1018 Dibucaine (Dibucaine) 1 % Oint, 1 GM TOP UD PRN for PAIN- SEE INSTRUCTIONS Prescribed by: ANAMARIA DAVE on 11/15/22 1018 Docusate Sodium (Docusate Sodium) 100 Mg Capsule, 100 MG PO BID PRN for CONSTIPATION-1ST LINE Prescribed by: ANAMARIA DAVE on 11/15/22 1018 Ferrous Sulfate (Ferosul) 325 Mg (65 Mg Iron) Tablet, 325 MG PO DAILY Prescribed by: ANAMARIA DAVE on 11/15/22 1018 Ibuprofen (Ibu) 600 Mg Tablet, 600 MG PO Q6H Prescribed by: ANAMARIA DAVE on 11/15/22 1018 Pnv with Ca,No.72/Iron/FA (Pnv Plus Multivit Tab) 27 Mg Iron-1 Mg Tablet, 1 EA PO DAILY@0700 Prescribed by: ANAMARIA DAVE on 11/15/22 1018 Review of Systems Review of Systems Constitutional: No chills, No fever EENTM: no symptoms reported Respiratory: no symptoms reported Cardiovascular: no symptoms reported Gastrointestinal: no symptoms reported Genitourinary: no symptoms reported Musculoskeletal: no symptoms reported Skin: see HPI Psychiatric/Neurological: No Symptoms Reported Past Babxvxl-Xamigy-Fjguny Hx Patient Social History Tobacco Use?: No Use of E-Cig and/or Vaping dev: No Substance use?: No Alcohol Use?: No Pt feels they are or have been: No Immunizations Up To Date PED Vaccines UTD: Yes Seasonal Allergies Seasonal Allergies: No Past Medical History Surgeries: No Respiratory: No Cardiac: No Neurological: No Genitourinary: No Gastrointestinal: Yes Gastroesophageal Reflux Musculoskeletal: No Endocrine: No HEENT: No Cancer: No Psychosocial: No Integumentary: No Blood Disorders: No Adverse Reaction/Blood Tranf: No Family Medical History Patient reports no known family medical history. Physical Exam Vital Signs Vital Signs - First Documented 02/18/23 21:28 Temp 36.9 Pulse 69 Resp 16 B/P (MAP) 116/67 (83) Pulse Ox 100 O2 Delivery Room Air Capillary Refill : Less Than 3 Seconds General Appearance: WD/WN, no apparent distress Cardiovascular: normal peripheral pulses Respiratory: chest non-tender, lungs clear, normal breath sounds Neurologic/Psychiatric: alert, oriented x 3 Skin: warm/dry, rash (areas of erythematous papular rash with some vesicles in linear pattern in some areas) Progress/Results/Core Measures Results/Orders My Orders Orders - GUSTABO LEDEZMA MD Dexamethasone Injection (Decadron Inje (02/18/23 21:45) Methylprednisolone Acetate Inj (Depo-Med (02/18/23 21:45) Vital Signs/I&O 02/18/23 02/18/23 21:28 21:53 Temp 36.9 36.9 Pulse 69 69 Resp 16 16 B/P (MAP) 116/67 (83) 116/67 Pulse Ox 100 100 O2 Delivery Room Air Room Air Blood Pressure Mean: 83 Progress Progress Note : Progress Note As the rash does have some appearance similar to poison angela with some linear areas of vesicles we will treat with steroid injections. Ordered dexamethasone 10 mg IM in addition to Depo-Medrol 40 mg IM. Counseled to use Benadryl or antihistamines [id number] to help with itch and rash. Check with the pharmacist about possible poison angela type soap to help ensure that all of the oils from the plant are dissolved and off of her skin. Check back with the clinic if not improving. Departure Impression Primary Impression: Contact dermatitis due to poison angela Disposition: HOME, SELF-CARE Condition: Stable Departure-Patient Inst. Decision time for Depature: 21:49 Referrals: ANAMARIA DAVE DO (PCP/Family) Primary Care Physician [facility] [place] Patient Instructions: Poison Angela, Poison [place], Poison [place] ED, Skin Rash ED Add. Discharge Instructions: You may try applying cortisone steroid cream to small areas such as your hand and wrist or around the bellybutton. This could help with the itching and the rash. The steroid injections from tonight will help with the rash and dried up and help with the itching over the next several days. You could also take antihistamine such as Benadryl 25 to 50 mg every 4 hours as needed for itching and rash. If having worsening symptoms or not improving check back with the clinic. They may need to do oral steroids for a longer course. All discharge instructions reviewed with patient and/or family. Voiced understanding. GUSTABO LEDEZMA MD Feb 18, 2023 21:51"
[2023-02-18 21:53] VITALS: BP 116/67
== END 2023-02-18 21:54 | disposition home or self-care (01) ==
LOC: EDUNIT# 21:26 → ER FS 21:27
DX: L23.7 Allergic contact dermatitis due to plants, except food (principal); Z28.310 Unvaccinated for COVID-19
CPT/HCPCS: 99284

== ENCOUNTER → 2023-03-08 | Outpatient (CLI) | payer MEDICAID ==
--- NOTE | 2023-03-08 16:05 | Diagnostic Imaging Report ---
Indication: Right-sided mid abdominal pain for one month. Time of Exam: 10:16 AM Frontal view of the chest as well as upright and supine views of the abdomen were obtained. Heart size normal. Lungs are clear. No infiltrates are detected. No free air is identified. The bowel gas pattern is nonobstructed. There is moderate stool in the colon. No pathologic calcifications are seen. IMPRESSION: No acute abnormality is detected. Dictated by: Dictated on workstation # [id number]
== END ==
LOC: RAD 10:02
PROVIDERS: ATTEND Nurse Practitioner Women's Health
DX: R10.11 Right upper quadrant pain (principal)
CPT/HCPCS: 74022